=== PATIENT | female | born 1955 | race Caucasian/White ===

== ENCOUNTER 2016-09-12 13:25 | Inpatient (IN) | payer MEDICAID, OTHER ==
[2016-09-12] MEDS ORDERED: SODIUM CHLORIDE 0.9% 500 ML IV ONE ×2 (14:15→15:11)
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
[2016-09-12 14:26] LABS: Appearance,Urine Cloudy (Clear); Bilirubin,Urine Negative (Negative); Glucose,Urine (UA) Negative (Negative); Ketones,Urine 4+ (Negative); Leukocyte Esterase,Urine Negative (Negative); Mucus,Urine Occasional /hpf; Nitrite,Urine Negative (Negative); Particle Count 4566; Protein,Urine 2+ (Negative); RBC,Urine 7 /hpf (0-5); Specific Gravity,Urine 1.021 (1.001-1.035); Squamous Epithelial Cell,Urine 4 /hpf (0-4); UA Billing (MACRO vs. MICRO) MICRO; WBC,Urine 2 /hpf (0-5)
[2016-09-12 14:38] LABS: Basophils % (A) 0 %; CH 31.9; CHCM 33.8; Eosinophils % (A) 0 %; HCT 42.4 % (34.0-46.0); HDW 2.18; HGB 14.4 gm/dL (11.4-16.0); Luc # (Auto) 0.18; Luc % (Auto) 1; Lymphocytes # (A) 1.8 k/uL (1.0-4.8); Lymphocytes % (A) 12 %; MCH 32.3 pg (25.0-35.0); MCHC 34.1 g/dL (31.0-37.0); MCV 94.8 fL (80.0-100.0); Mean Platelet Volume 7.7; Monocytes # (A) 0.5 k/uL (0-1.0); Monocytes % (A) 4 %; Neutrophils # (A) 11.9 k/uL (1.3-7.7); Neutrophils % (A) 82 %; RBC 4.47 m/uL (3.80-5.40); WBC 14.4 k/uL (3.8-10.6); WBC (Perox) 14.47
[2016-09-12 14:51] LABS: Anion Gap 14 mmol/L; Blood Urea Nitrogen 45 mg/dL (7-17); Calcium 9.4 mg/dL (8.4-10.2); Carbon Dioxide 23 mmol/L (22-30); Chloride 106 mmol/L (98-107); Glucose 89 mg/dL (74-99); Non-African American GFR(MDRD) >60 (>60 ml/min/1.73 sqM); Potassium 3.2 mmol/L (3.5-5.1); Sodium 143 mmol/L (137-145)
[2016-09-12] MEDS ORDERED: POTASSIUM CHLORIDE ER 20 MEQ TAB.ER PO STA (15:08)
[2016-09-12] MEDS ORDERED: ZIPRASIDONE 20 MG VIAL IM STA (20:58)
[2016-09-12] MEDS ORDERED: ZIPRASIDONE 20 MG VIAL IM PRN (21:09)
[2016-09-12] MEDS ORDERED: MAGNESIUM HYDROXIDE 2,400 MG/10 ML CUP PO PRN (21:09)
[2016-09-12] MEDS ORDERED: MAG HYDROX/AL HYDROX/SIMETH 30 ML CUP PO PRN (21:09)
[2016-09-13 09:30] LABS: ALT 50 U/L (9-52); AST 34 U/L (14-36); Alkaline Phosphatase 58 U/L (38-126); Anion Gap 9 mmol/L; Blood Urea Nitrogen 29 mg/dL (7-17); Calcium 9.1 mg/dL (8.4-10.2); Carbon Dioxide 24 mmol/L (22-30); Chloride 112 mmol/L (98-107); Glucose 93 mg/dL (74-99); Non-African American GFR(MDRD) >60 (>60 ml/min/1.73 sqM); Potassium 3.8 mmol/L (3.5-5.1); Sodium 145 mmol/L (137-145); Total Bilirubin 0.4 mg/dL (0.2-1.3); Total Protein 6.1 g/dL (6.3-8.2)
[2016-09-13 09:31] LABS: Basophils % (A) 1 %; CH 31.7; CHCM 33.8; Eosinophils % (A) 0 %; HDW 2.19; HGB 13.6 gm/dL (11.4-16.0); Luc # (Auto) 0.15; Luc % (Auto) 2; Lymphocytes # (A) 2.4 k/uL (1.0-4.8); Lymphocytes % (A) 28 %; MCV 94.2 fL (80.0-100.0); Mean Platelet Volume 8.1; Monocytes # (A) 0.4 k/uL (0-1.0); Monocytes % (A) 4 %; Neutrophils # (A) 5.6 k/uL (1.3-7.7); Neutrophils % (A) 65 %; RBC 4.25 m/uL (3.80-5.40); RDW 13.1 % (11.5-15.5); WBC 8.6 k/uL (3.8-10.6); WBC (Perox) 9.15
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
[2016-09-13] MEDS: QUEtiapine 100 MG TAB PO SCH ×2 (13:26→20:37)
[2016-09-13 16:13] VITALS: BMI 18.8
[2016-09-14] MEDS: QUEtiapine 100 MG TAB PO SCH ×2 (09:01→20:20)
--- NOTE | 2016-09-14 10:19 | P.PN ---
Progress Note - Text Interval history: The patient is found in her room. She was verbally arousable from sleep. She refuses to speak to me in an interview room. The patient's sat up and faced away from me briefly. She answered a few questions and then indicated she was done talking. She is not a reliable historian at this time. She refused the Seroquel yesterday. Due to acute psychosis and agitation she did receive a Geodon injection. She was compliant with the Seroquel this morning. Mental status exam: The patient is a disheveled female appearing her stated age. She makes no eye contact she is turned away from me intentionally for most of our interaction this morning. She is dressed in hospital attire. She demonstrates psychomotor slowing with no agitation. She continues to appear confused and provides answers that are irrelevant. She demonstrates no verbal or physical aggressiveness during our interaction. Insight and judgment are impaired. She demonstrates no abnormal involuntary movements. Affect remains flat. Plan: The patient's will continue on the Seroquel as prescribed. Vital signs reviewed. We will continue to monitor her for safety. She has not been participating in the milieu. We will encourage that participation when appropriate.
--- NOTE | 2016-09-14 15:43 | P.CONS ---
History of Present Illness - Reason for Consult Consult date: 09/14/16 Patient admitted to the psych floor medical history and physical - History of Present Illness 61-year-old female is admitted to the hospital for patient was found to be distraught and was noted to have acute psychosis. Patient was restrained was admitted to the psych floor was given a Geodon injection Patient refuses to talk to me today states that she is resting she would likely to come back later Apparently patient has had multiple episodes of agitation No home medications were noted in the patient's chart Patient's labs were reviewed no abnormal labs are noted including a UA which is within normal limits Patient apparently was found in her own feces Review of Systems ROS unobtainable: due to mental status (Noted in) Past Medical History Additional Past Medical History / Comment(s): back pain History of Any Multi-Drug Resistant Organisms: None Reported Past Surgical History: Section, Cholecystectomy Past Psychological History: Anxiety, Depression Smoking Status: Current every day smoker Past Alcohol Use History: None Reported Past Drug Use History: None Reported Medications and Allergies Home Medications Medication Instructions Recorded Confirmed Type No Known Home Medications [No 09/12/16 09/12/16 History Known Home Medications] Allergies Allergy/AdvReac Type Severity Reaction Status Date / Time Penicillins Allergy Unknown Verified 09/12/16 14:15 Physical Exam Vitals: Vital Signs Temp Pulse Resp BP 09/14/16 06:42 98.9 F 85 20 108/62 Patient refuses examination Grossly however is moving all her extremities Results CBC & Chem 7: 09/13/16 09:00 09/13/16 09:00 Assessment and Plan Plan: #1 acute psychosis Plan Patient refused an examination Reviewed the chart. There is no abnormalities noted there is no concern for urinary tract infection No further workup is needed. If there is any issues that do arise or any complaints from the patient please call us back to reevaluate the patient
[2016-09-15] MEDS: QUEtiapine 100 MG TAB PO SCH ×2 (09:16→20:37)
[2016-09-15] MEDS: ACETAMINOPHEN TAB 325 MG TAB PO PRN (09:18)
--- NOTE | 2016-09-15 09:22 | P.PN ---
Progress Note - Text Interval history: The patient is found in her room she is standing looking out her window. The patient remains quite resistant to participating in an interview. Several times she asks me to leave as she wants to be alone. With persistent efforts in questioning her she provides some brief answers. She endorses a mood that is "confused". Documentation was reviewed her by mouth intake and terms of food has not been very good. She is encouraged to consider eating more. She initially states that she would drink ensure but later states she doesn't want it. In reviewing the record it appears she has been compliant with both doses of Seroquel yesterday. Mental status exam: The patient is a female she is dressed in hospital gowns she makes no eye contacts for the most part she staring out of her window and is standing. 2-3 times during our brief interaction she sat on the bed and then started up again. Her breakfast tray is on her bed untouched. Repeatedly she asked to be left alone and is resistant to further questioning. Mood is described as "confused" again there is very little exposure of her face during the interview but does appear flat. She demonstrates no verbal or physical aggressiveness. She is oriented to day month and year area and she appears to be in no acute distress. Plan: The patient will continue on her current medication. We will consider titrating the Seroquel further. She is encouraged to eat more food we will monitor this closely. Vital signs reviewed.
--- NOTE | 2016-09-16 09:07 | P.PN ---
Progress Note - Text Interval history: The patient is found in her room she is standing up looking out of the window. She initially makes eye contact and then breaks that away and exclusively looks out the window. She seated herself on her bed looking out the window throughout the interview. She is more willing to answer questions today. She does provide brief responses to questions asked. There is little spontaneous speech. She continues to be vague and ambiguous with answers but does indicate she needs to be here as she feels "comfortable here". She endorses some arthritic pain and requests Tylenol with codeine but she is willing to use regular Tylenol instead. Mental status exam: The patient is a female she is dressed in hospital gowns. She appears to be struggling still with symptoms of psychosis that she does not specified. Insight and judgment are impaired. She demonstrates no psychomotor agitation no abnormal involuntary movements observed. Again she makes brief eye contact with the initiation of our session. Speech is fluent nonpressured. She does not appear hypomanic or manic. There is no verbal or physical aggressiveness observed. She continues to isolate in her room. Her breakfast tray is visible on the bed once we enter the room she immediately covers it. Plan: The patient will continue on Seroquel we will increase the dose to 100 mg in the morning 200 mg at bedtime. We may need to titrate the dose further. She is very slowly becoming more interactive with are interviews. I believe she continues to experience symptoms of psychosis. She requires continued psychiatric hospitalization as she would likely decompensate if discharged at this time. Vital signs reviewed.
[2016-09-16] MEDS: QUEtiapine 100 MG TAB PO SCH (09:37)
[2016-09-16] MEDS: ACETAMINOPHEN TAB 325 MG TAB PO PRN ×2 (15:38→20:35)
[2016-09-16] MEDS: QUEtiapine 200 MG TAB PO SCH (20:34)
[2016-09-17] MEDS: QUEtiapine 100 MG TAB PO SCH (09:52)
[2016-09-17] MEDS: ACETAMINOPHEN TAB 325 MG TAB PO PRN ×2 (09:52→21:06)
--- NOTE | 2016-09-17 12:14 | P.PN ---
Progress Note - Text Interval History: Patient is being seen in coverage for Dr. Burroughs. Patient was seen in her room where she was found standing looking out the window. She did turn around and make intermittent eye contact during our interview and denied having any auditory or visual hallucinations and denied any other symptoms. Her only statement to me was "I want to be left alone". She responded all other questions with yes and no answers. Patient states that she was sleeping better last evening. She reported no side effects from her medication. Mental Status: Appearance/Attitude: Patient was dressed in a hospital gown and was cooperative during the interview. Behavior: Patient standing in front of the window in her room made intermittent eye contact during the interview, no psychomotor agitation. Speech/Language: Patient's speech was not spontaneous, she spoke in a soft voice with normal rhythm. Thought Process: Patient responded to questions with yes no answers. Thought Content: Patient denied any auditory or visual hallucinations and denied any paranoid ideation and no delusions were elicited. Patient's only statement to me other than answering yes and no to questions was that she "wanted to be left alone". Suicidal/Homicidal Ideation: Patient denied any suicidal or homicidal ideation currently. Sensorium/Cognition: Patient was alert and oriented to person, situation and her memory was not formally tested. Intellectual Functioning: Patient's intellectual functioning appears average Mood/Affect: Patient's affect remains blunted and denied feeling depressed. Insight/Judgement: Patient's insight and judgment are impaired. Assessment: Patient made more eye contact today while I spoke with her in her room but only responded with yes no answers to all questions, denying all symptomatology and only stated that she wanted to be left alone. Patient has been staying in her room and has not been attending groups but did report that her sleep was somewhat better last night. Plan: Patient will continue on Seroquel which was increased yesterday to 100 mg in the morning and 200 mg at bedtime, she was encouraged to attend groups and activities. Patient requires continued hospitalization to stabilize her and improve her level of functioning.
[2016-09-17] MEDS: QUEtiapine 200 MG TAB PO SCH (21:05)
--- NOTE | 2016-09-18 09:28 | P.PN ---
Progress Note - Text Interval history: The patient is found in her room she is seated upright in bed wearing eyeglasses reading a newspaper. Upon entering the room and green her she holds up her hand. She provides no verbal responses today she shakes her head yes or no. She shrugs her shoulders to other answers. She makes no eye contact. With open-ended questions she provides no response and will sit quietly until a different question is answered. This presentation appears consistent with yesterday's presentation in reviewing progress notes. Mental status exam: The patient is alert she is rating her paper wearing eyeglasses she is dressed in hospital gowns. Again she makes no eye contact and provides no verbal responses. Her presentation is somewhat regressed as with our last meeting she provided verbal responses. It is likely she continues to experience acute symptoms of psychosis. Insight and judgment is impaired. No observed abnormal involuntary movements. No physical aggressiveness observed. Affect remains flat. Plan: The patient will continue on Seroquel we will titrate the dose to 100 mg in the morning 300 mg at bedtime to further address her symptoms of psychosis. It appears that her appetite has improved. Her function is still quite limited due to her psychosis and therefore she requires continued psychiatric hospitalization. Vital signs reviewed.
[2016-09-18] MEDS: QUEtiapine 100 MG TAB PO SCH ×2 (09:34→21:42)
[2016-09-18] MEDS: ACETAMINOPHEN TAB 325 MG TAB PO PRN ×2 (09:37→21:41)
[2016-09-19] MEDS: ACETAMINOPHEN TAB 325 MG TAB PO PRN (10:17)
[2016-09-19] MEDS: QUEtiapine 100 MG TAB PO SCH ×2 (10:18→20:02)
--- NOTE | 2016-09-19 10:59 | P.PN ---
Progress Note - Text Interval history: The patient is found in her room she is ambulating today she makes eye contact and provides verbal responses to my questions. 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 She endorses a continued feeling of confusion. She offers no explanation for this episode of psychosis. She endorses no recent loss or relationship difficulty. She is aware of the Seroquel being prescribed and it' s current dose. She is comfortable with continuing the medication. It is recorded that she slept 5 hours last evening. She has been doing better with meal consumption and had indicated she looks forward to eating now. She does ask me if we will continue the Ensure. Mental status exam: The patient's is alert she is dressed in hospital gown she is wearing eyeglasses. Grooming seems improved. She does engage in conversation in that she provides verbal responses today with me she did not initiate conversation. She endorses a "confused" mood. Affect appears blunted today. She appears to experience continued symptoms of psychosis. She verbalizes no hallucinations. She endorses a feeling of safety here in the hospital. No observed abnormal movements. No verbal or physical aggressiveness. Insight and judgment limited. Plan: The patient will continue on the Seroquel as written we will consider titrating it further if needed. It does appear that she is slowly stabilizing. She is encouraged to reduce her isolation in her room. She is adamant that she will not attend groups. She is encouraged to ambulate in the hallways. Vital signs reviewed. We will continue to monitor for safety.
[2016-09-20] MEDS: QUEtiapine 100 MG TAB PO SCH ×2 (09:35→21:24)
[2016-09-20] MEDS: NICOTINE 21MG/24HR PATCH TRANSDERM SCH (17:26)
[2016-09-20] MEDS ORDERED: traZODone HCL 50 MG TAB PO PRN (19:27)
[2016-09-20] MEDS ORDERED: hydrOXYzine PAMOATE 25 MG CAP PO PRN (19:27)
--- NOTE | 2016-09-20 19:27 | P.PN ---
Progress Note - Text Date of service: 09/20/2016 Chief complaint: "I feel better today " Subjective: The patient has been seen today as follow-up, chart reviewed, case discussed with the treatment team. The patient endorsed still has poor sleep and woke up frequently last night. She reports has racing thoughts, feeling irritable and increasingly anxious. She reports feels less depressed today and denies any thoughts to hurt self or others. She endorsed her anxiety is the most bothering at current time with nonstop racing thoughts and always feeling tense and irritable. Also reports her anxiety would cause physical symptoms including tightness of chest and sometimes racing hear. The patient denies any manic symptoms. The patient denies any auditory or visual hallucinations. Also the patient denies any paranoid ideation. Generally the patient reports feeling progress "today is the first time to feel like myself" Review of other systems: Patient denies any physical symptoms besides what has been mentioned above. No breathing problems, no chest pain reported today. Objective: Vitals has been reviewed. Mental status examination; Appearance: The patient appears older than his stated age, partially disheveled , dressed in hospital gown, no specific features. Gait/posture: Normal gait, Normal arm swinging: No abnormal movements. Attitude and behavior: engaged, not fully cooperative, intermittent eye contact. Motor activity: Increased psychomotor activity Speech: Normal rate and rhythm but very soft. Mood: Anxious Affect: Constricted Thought form: goal-directed, linear, coherent. Thought content: Non-delusional, denies suicidal thoughts, denies homicidal thoughts, denies intentions or plans. Perception: Denies any auditory or visual hallucinations Attention: No impairment. Orientation: Patient patient was fully oriented to time place person and situation. Insight: Patient has limited insight about his psychiatric disorder. Judgment: Patient has limited judgment about his psychiatric treatment. Assessment: Psychosis unspecified Unspecified anxiety disorder Plan: Continue with inpatient psychiatric hospitalization for monitoring and continue treatment. Continue group therapy and other unit activities. Continue psychiatric medications: Continue Seroquel for psychotic symptoms and as mood stabilizer Discussed with pt to start other anti-anxiety medication as SSRI or Neurontin but she refused Pt agreed to try Vistaril PRN for anxiety and Trazodone PRN for insomnia We'll continue monitoring and follow-up
[2016-09-21 06:52] VITALS: RESP 16
[2016-09-21] MEDS: QUEtiapine 100 MG TAB PO SCH ×2 (08:06→20:54)
[2016-09-21] MEDS: NICOTINE 21MG/24HR PATCH TRANSDERM SCH (08:06)
--- NOTE | 2016-09-21 15:24 | P.PN ---
Progress Note - Text Date of service: 09/21/2016 Chief complaint: "I'm still feeling anxious and I want have my Ativan " Subjective: The patient has been seen today as follow-up, chart reviewed, case discussed with the treatment team. Patient slept about 5-6 hours last night. Patient has been not going to groups and other unit activities which has been explained by the patient due to high anxiety. Patient reports no appetite problems. The patient continued to report feeling extremely anxious, apprehensive with nonstop racing thoughts and has bouts of severe anxiety with racing heart and feeling extremely tense. Discussed with the patient to take Vistaril and she refused to give it a chance. She reported that she recalled she had tried before and caused severe reaction but she couldn't remember what happened. Patient agreed to try trazodone to help with the sleep. She reported that she wanted to get back on Ativan and he refused to discuss any other option for medication adjustment to help with anxiety. Patient denies feeling severely depressed and he denies feeling hopeless or suicidal. The patient denies any manic symptoms. The patient denies any auditory or visual hallucinations. Also the patient denies any paranoid ideation. The patient is compliant with her medications and denies any adverse reactions. Review of other systems: Patient denies any physical symptoms besides what has been mentioned above. No breathing problems, no chest pain reported today. Objective: Vitals has been reviewed. Mental status examination; Appearance: The patient appears older than stated age, partially disheveled, dressed in hospital gown, no specific features. Gait/posture: Normal gait, Normal arm swinging: No abnormal movements. Attitude and behavior: engaged, not fully cooperative, intermittent eye contact. Motor activity: Increased psychomotor activity Speech: Normal rate and rhythm but very soft. Mood: Anxious Affect: Constricted Thought form: goal-directed, linear, coherent. Thought content: Non-delusional, denies suicidal thoughts, denies homicidal thoughts, denies intentions or plans. Perception: Denies any auditory or visual hallucinations Attention: No impairment. Orientation: Patient patient was fully oriented to time place person and situation. Insight: Patient has limited insight about her psychiatric disorder. Judgment: Patient has limited judgment about her psychiatric treatment. Assessment: Psychosis unspecified Unspecified anxiety disorder Plan: Continue with inpatient psychiatric hospitalization for monitoring and continue treatment. Continue group therapy and other unit activities. Continue psychiatric medications: Continue Seroquel for psychotic symptoms and as mood stabilizer Discussed with pt to start other anti-anxiety medication as SSRI or Neurontin but she continued to refuse any change of her medication or adjustment besides adding Ativan. Will discontinue Vistaril Vistaril PRN for anxiety We will continue Trazodone PRN for insomnia We'll continue monitoring and follow-up
[2016-09-21] MEDS: ACETAMINOPHEN TAB 325 MG TAB PO PRN (22:00)
[2016-09-22 07:04] VITALS: PULSE 66
[2016-09-22] MEDS: ACETAMINOPHEN TAB 325 MG TAB PO PRN ×3 (09:04→20:46)
[2016-09-22] MEDS: QUEtiapine 100 MG TAB PO SCH ×2 (09:04→20:30)
--- NOTE | 2016-09-22 09:29 | P.PN ---
Progress Note - Text Interval history: The patient is found in the hallway she follows this to an interview room. The patient indicates her mood is improving. She reports some difficulty sleeping but is reported as having slept 6 hours she reports her appetite has returned she looks forward to meals. In reviewing documentation she has been doing well with eating. She has been avoiding groups for the most part she did attempt one but she felt offended by language that was used during the session. She has concern about the Seroquel interfering with her liver function. We reviewed her most recent liver enzymes which were normal and the fact that she needs to continue the Seroquel. She was reassured that Seroquel has no addictive potential which she assumed it did. She states that she only has one child in the area a son she feels he may be available via phone for a support meeting. Mental status exam: The patient is dressed in hospital gowns hygiene grooming improved she is preparing to shower this morning. She is wearing eyeglasses. Speech is fluent spontaneous nonpressured. She provides relevant answers to questions asked. She feels her mood is improving. Symptoms of psychosis are resolving. There is no report of suicidal ideation. She demonstrates no verbal or physical aggressiveness. No abnormal involuntary movements observed. Affect is demonstrating inappropriate increase in range. Affect is congruent to mood. Insight and judgment improving. Plan: The patient will continue on her current medications I anticipate discharging her in the next 1-2 days. Social work will be asked to arrange a support meeting and to confirm she has housing to return to. Vital signs reviewed.
[2016-09-22] MEDS: NICOTINE 21MG/24HR PATCH TRANSDERM SCH (09:48)
[2016-09-23 05:44] VITALS: BP 99/56; TEMP 97.5
[2016-09-23] MEDS: NICOTINE 21MG/24HR PATCH TRANSDERM SCH (08:10)
[2016-09-23] MEDS: QUEtiapine 100 MG TAB PO SCH (08:11)
[2016-09-23] MEDS: ACETAMINOPHEN TAB 325 MG TAB PO PRN ×2 (08:11→12:51)
--- NOTE | 2016-09-23 10:57 | P.DS ---
Providers Date of admission: 09/12/16 21:05 Expected date of discharge: 09/23/16 Attending physician: Edmar Burroughs Consults: 09/12/16 21:09 Consult Physician Routine Consulting Provider: Yumi Prabhakar Consult Reason/Comments: H&P and medical follow up, UTI Do you want consulting provider notified?: Yes Primary care physician: Stated None - Discharge Diagnosis(es) (1) Psychosis Current Visit: Yes Status: Acute Priority: High Hospital Course: Brief summary of admission note: The patient is a 61-year-old female who was admitted to the mental health unit through the emergency room for acute the agitated behavior with psychosis. The patient was admitted on a petition stating she was agitated confused and disorganized. She was agitated in the emergency room and attempted to throw feces at an emergency Center nurse. She was physically aggressive. For full details please refer to the psychiatric evaluation dictated 09/13/2016. Summary of hospital course: The patient was admitted to the mental health unit in voluntarily. I did complete a second clinical certificate. During her deferral conference she did sign the deferral agreement. I had attempted to meet with the patient initially however she was not cooperative with the interview. I was able to review old records from her 2014 visit. We decided to restart her on Seroquel and this was titrated during the course of her stay ultimately to 100 mg in the morning and 300 mg at bedtime. For the first several days the patient was either uncooperative are partially cooperative with the interview. During the course of the hospitalization however this improved. For the last several days she has been doing markedly better and has engaged in the interview each day. She was seen by the hospitalist for routine history and physical exam. She is reporting no side effects with the Seroquel. During the course of her hospitalization she was placed on trazodone for sleep. She will likely be staying with her son social work will confirm placement options. Initially her appetite was quite poor and she was not eating well this was closely observed. We did provide insurer with meals. For the last several days she has been doing well with eating. Mental status exam: The patient is a female appearing her stated age. She is dressed in hospital gown she is wearing eyeglasses. Hygiene grooming is much improved. Speech is fluent spontaneous nonpressured. She reports her mood is "better". She denies having any suicidal or homicidal ideation intent or plan. She is endorsing no auditory or visual hallucinations she is endorsing no specific delusions at this time. She demonstrates no verbal or physical aggressiveness. Insight and judgment have improved. There are no observed abnormal involuntary movements. She is oriented to person place and date. Affect is appropriately expresses and is congruent to her reported mood. Impressions 1. Psychosis unspecified, rule out schizophrenia 2. History of chronic pain, osteoarthritis 3. Need for housing change Plan: The patient will be discharged mental health unit today. She is on an existing deferral agreement. She will be continued on Seroquel 100 mg in the morning 300 mg at bedtime. She does prefer to continue using trazodone 50 mg at bedtime for sleep. Social work will arrange outpatient mental health follow- up. She has improved significantly during the course of this hospitalization she is able to participate in her own activities of daily living she is endorsing no symptoms of psychosis. There is no imminent safety risk she is appropriate for transition to outpatient care. Patient Condition at Discharge: Stable Plan - Discharge Summary New Discharge Prescriptions: New Nicotine 21Mg/24Hr Patch [Habitrol] 1 patch TRANSDERM DAILY #12 patch QUEtiapine [SEROquel] 100 mg PO DAILY #30 tab QUEtiapine FUMARATE [SEROquel] 300 mg PO HS #30 tab traZODone HCL [Desyrel] 50 mg PO HS PRN #30 tab PRN Reason: Insomnia Discharge Medication List Nicotine 21Mg/24Hr Patch [Habitrol] 1 patch TRANSDERM DAILY #12 patch 09/23/16 [ Rx] QUEtiapine FUMARATE [SEROquel] 300 mg PO HS #30 tab 09/23/16 [Rx] QUEtiapine [SEROquel] 100 mg PO DAILY #30 tab 09/23/16 [Rx] traZODone HCL [Desyrel] 50 mg PO HS PRN #30 tab 09/23/16 [Rx] Follow up Appointment(s)/Referral(s): None,Stated [Primary Care Provider] - 1-2 days
== END 2016-09-23 16:47 | disposition home or self-care (01) | DRG 885 ==
LOC: EC 13:25 → 3MHU 21:05
PROVIDERS: ADMIT Psychiatry & Neurology Psychiatry; ATTEND Psychiatry & Neurology Psychiatry
DX: F23 Brief psychotic disorder (principal); F41.9 Anxiety disorder, unspecified; F17.200 Nicotine dependence, unspecified, uncomplicated; G89.29 Other chronic pain; M19.91 Primary osteoarthritis, unspecified site; H40.9 Unspecified glaucoma; G47.9 Sleep disorder, unspecified; M54.9 Dorsalgia, unspecified; Z90.49 Acquired absence of other specified parts of digestive tract; Z87.828 Personal history of other (healed) physical injury and trauma
CPT/HCPCS: 36415; 80048; 80053; 80306; 81001; 82075; 84443; 85025; 96360; 96361; 96372; 99285

== ENCOUNTER 2016-11-10 13:42 | Emergency (ER) | payer MEDICAID, OTHER ==
[2016-11-10 14:03] VITALS: RESP 18
--- NOTE | 2016-11-10 14:59 | ED ---
Psych HPI - General Chief Complaint: Psychiatric Symptoms Stated Complaint: Mental Health Time Seen by Provider: 11/10/16 14:05 Source: patient, police Mode of arrival: ambulatory - History of Present Illness Initial Comments: This 61-year-old white female presents for psychiatric evaluation. She apparently does have a history of bipolar disorder. She had a court ordered to follow-up with a counselor. She apparently missed her appointment with the scheduled counselor and the police brought her in to the emergency department for further evaluation. She relates that she followed up with her own counselor. She previously was on a medication that she states made her head feels fuzzy. Her primary doctor put her on Elavil and Ativan. She states that she has been on these medications for years and this is what normally seems to work well for her. She's been feeling much improved since being on these medications. She denies any current depression, suicidal or homicidal ideations , or hallucinations. She has some chronic pain issues but denies any other medical complaints. She states that she feels fine at this point in time. No other complaints or modifying factors. - Related Data Home Medications Medication Instructions Recorded Confirmed Amitriptyline HCl [Elavil] 25 mg PO TID 11/10/16 11/10/16 Cephalexin [Keflex] 250 mg PO TID 11/10/16 11/10/16 LORazepam [Ativan] 1 mg PO TID 11/10/16 11/10/16 QUEtiapine FUMARATE [SEROquel] 150 mg PO HS 11/10/16 11/10/16 Allergies Allergy/AdvReac Type Severity Reaction Status Date / Time Penicillins Allergy Unknown Verified 11/10/16 14:52 latex AdvReac Rash/Hives Verified 11/10/16 14:52 Review of Systems ROS Statement: Those systems with pertinent positive or pertinent negative responses have been documented in the HPI. ROS Other: All systems not noted in ROS Statement are negative. Past Medical History Additional Past Medical History / Comment(s): back pain History of Any Multi-Drug Resistant Organisms: None Reported Past Surgical History: Section, Cholecystectomy Past Psychological History: Anxiety, Depression Smoking Status: Current every day smoker Past Alcohol Use History: None Reported Past Drug Use History: None Reported General Exam - General Exam Comments Initial Comments: GENERAL: The patient is well nourished and well hydrated. VITAL SIGNS: Heart rate, blood pressure, respiratory rate reviewed as recorded in nurse's notes. EYES: Pupils are round and reactive. Extraocular movements are intact. No conjunctival / lid redness or swelling. ENT: No external evidence of injury, swelling, or ecchymosis. Airway is patent. Throat is clear. NECK: Nontender. No swelling or evidence of injury. No subcutaneous emphysema. Trachea is midline. No thyroid mass. HEART: Regular rate and rhythm. Good peripheral pulses. LUNGS/CHEST: Breath sounds clear and equal bilaterally. No rales, rhonchi, or wheezes. No ecchymosis, subcutaneous emphysema, or tenderness. ABDOMEN: Abdomen soft without tenderness. No palpable masses or organomegaly. No peritoneal signs. No abdominal wall swelling or ecchymosis. EXTREMITIES: No extremity tenderness. Normal muscle tone and function. No thoracolumbar tenderness. NEUROLOGIC: Sensation is grossly intact. Cranial nerve exam reveals face is symmetrical, tongue is midline, speech is clear. SKIN: No abrasions or ecchymosis is noted. No induration or masses noted. PSYCHIATRIC: Alert and oriented. Appropriate behavior and judgment. Limitations: no limitations Course Vital Signs 11/10/16 13:50 Temperature 97.9 F Pulse Rate 87 Respiratory 18 Rate Blood Pressure 123/66 O2 Sat by Pulse 99 Oximetry Medical Decision Making - Medical Decision Making The patient was seen and examined. A consult was placed for psychiatry. All diagnostics were reviewed. It is felt as though she is medically cleared for further psychiatric evaluation. The case is discussed with psychiatry at they recommend discharge. It appears that she has been following up as recommended but had not informed to quarts as she followed up with somebody else. She appears quite well clinically at this time to myself and the psychiatry nurse. She was counseled regarding her condition and leaves in no distress. - Lab Data Lab Results 11/10/16 Range/Units 13:55 Urine Opiates Screen Not Detected (NotDetected) Ur Oxycodone Screen Not Detected (NotDetected) Urine Methadone Screen Not Detected (NotDetected) Ur Propoxyphene Screen Not Detected (NotDetected) Ur Barbiturates Screen Not Detected (NotDetected) U Tricyclic Antidepress Detected H (NotDetected) Ur Phencyclidine Scrn Not Detected (NotDetected) Ur Amphetamines Screen Not Detected (NotDetected) U Methamphetamines Scrn Not Detected (NotDetected) U Benzodiazepines Scrn Detected H (NotDetected) Urine Cocaine Screen Not Detected (NotDetected) U Marijuana (THC) Screen Not Detected (NotDetected) Disposition Clinical Impression: Bipolar disorder Disposition: HOME SELF-CARE Condition: Good Instructions: Bipolar Disorder (ED) Referrals: Ezequiel Oshea III, MD [Primary Care Provider] - 1-2 days Time of Disposition: 18:37
[2016-11-10 18:56] VITALS: BP 118/65; PULSE 78; TEMP 97.6
== END 2016-11-10 18:56 | disposition home or self-care (01) ==
LOC: EC 13:42
DX: F31.9 Bipolar disorder, unspecified (principal); F41.9 Anxiety disorder, unspecified; F17.200 Nicotine dependence, unspecified, uncomplicated; Z79.899 Other long term (current) drug therapy; Z88.0 Allergy status to penicillin; Z91.040 Latex allergy status
CPT/HCPCS: 80306; 82075; 99284

== ENCOUNTER 2019-03-18 14:26 | Observation (INO) | payer OTHER ==
[2019-03-18 15:39] LABS: Basophils # (A) 0.2 k/uL (0-0.2); Basophils % (A) 2 %; Eosinophils # (A) 0.1 k/uL (0-0.7); Eosinophils % (A) 1 %; HCT 42.3 % (34.0-46.0); HGB 13.8 gm/dL (11.4-16.0); Lymphocytes # (A) 3.7 k/uL (1.0-4.8); Lymphocytes % (A) 31 %; MCH 30.8 pg (25.0-35.0); MCHC 32.7 g/dL (31.0-37.0); MCV 94.2 fL (80.0-100.0); Mean Platelet Volume 7.9; Monocytes # (A) 0.5 k/uL (0-1.0); Monocytes % (A) 4 %; Neutrophils # (A) 7.1 k/uL (1.3-7.7); Neutrophils % (A) 60 %; Platelet Count 283 k/uL (150-450); RBC 4.49 m/uL (3.80-5.40); RDW 12.8 % (11.5-15.5); WBC 11.7 k/uL (3.8-10.6)
--- NOTE | 2019-03-18 15:41 | XR ---
EXAMINATION TYPE: XR chest 2V DATE OF EXAM: 03/18/2019 COMPARISON: 10/08/2009 INDICATION: Left-sided chest pain and difficulty breathing x3 days TECHNIQUE: Frontal and lateral views of the chest are obtained. FINDINGS: The heart size is normal. The pulmonary vasculature is normal. The lungs are clear. There is hyperinflation flattening the diaphragms with an increased retrosterna l airspace compatible COPD. IMPRESSION: 1. COPD. 2. No acute pulmonary process.
[2019-03-18 15:48] LABS: ALT 17 U/L (4-34); AST 31 U/L (14-36); African American GFR (CKD) >90 (>60 ml/min/1.73 sqM); Albumin 4.6 g/dL (3.5-5.0); Alkaline Phosphatase 56 U/L (38-126); Anion Gap 7 mmol/L; Blood Urea Nitrogen 10 mg/dL (7-17); Calcium 9.3 mg/dL (8.4-10.2); Carbon Dioxide 23 mmol/L (22-30); Chloride 108 mmol/L (98-107); Glucose 97 mg/dL (74-99); Magnesium 1.9 mg/dL (1.6-2.3); Non-African American GFR(CKD) >90 (>60 ml/min/1.73 sqM); Sodium 138 mmol/L (137-145); Total Bilirubin 0.4 mg/dL (0.2-1.3); Total Protein 7.5 g/dL (6.3-8.2)
[2019-03-18 15:49] LABS: INR 0.9 (<1.2); Partial Thromboplastin Time 23.4 sec (22.0-30.0); Prothrombin Time 9.4 sec (9.0-12.0)
--- NOTE | 2019-03-18 16:28 | ED ---
Chest Pain HPI - General Chief Complaint: Chest Pain Stated Complaint: Chest pain Time Seen by Provider: 03/18/19 15:13 Source: patient Mode of arrival: ambulatory Limitations: no limitations - History of Present Illness Initial Comments: Patient presents with chest pain. Pain is substernal. It radiates the left side. She has no diaphoresis. She has no nausea. She has no weakness. She has no lightheadedness or dizziness. She has taken no medicines for this. She wasn't doing anything when the pain began. She has never had a cardiac workup in the past. - Related Data Home Medications Medication Instructions Recorded Confirmed Amitriptyline HCl [Elavil] 25 mg PO TID 11/10/16 11/10/16 Cephalexin [Keflex] 250 mg PO TID 11/10/16 11/10/16 LORazepam [Ativan] 1 mg PO TID 11/10/16 11/10/16 QUEtiapine FUMARATE [SEROquel] 150 mg PO HS 11/10/16 11/10/16 Allergies Allergy/AdvReac Type Severity Reaction Status Date / Time Penicillins Allergy Unknown Verified 03/18/19 14:34 latex AdvReac Rash/Hives Verified 03/18/19 14:34 Review of Systems ROS Statement: Those systems with pertinent positive or pertinent negative responses have been documented in the HPI. ROS Other: All systems not noted in ROS Statement are negative. EKG Findings - EKG Comments: EKG Findings:: Twelve-lead EKG shows ventricular rate 94 bpm, normal NM interval and QRS complexes, no ST elevation or depression, interpreted by me as normal sinus rhythm. Past Medical History Additional Past Medical History / Comment(s): back pain History of Any Multi-Drug Resistant Organisms: None Reported Past Surgical History: Section, Cholecystectomy Past Psychological History: Anxiety, Depression Smoking Status: Current every day smoker Past Alcohol Use History: None Reported Past Drug Use History: Marijuana General Exam Limitations: no limitations General appearance: alert, in no apparent distress Head exam: Present: atraumatic, normocephalic, normal inspection Eye exam: Present: normal appearance, PERRL, EOMI. Absent: scleral icterus, conjunctival injection, periorbital swelling ENT exam: Present: normal exam, mucous membranes moist Neck exam: Present: normal inspection. Absent: tenderness, meningismus, lymphadenopathy Respiratory exam: Present: normal lung sounds bilaterally. Absent: respiratory distress, wheezes, rales, rhonchi, stridor Cardiovascular Exam: Present: regular rate, normal rhythm, normal heart sounds. Absent: systolic murmur, diastolic murmur, rubs, gallop, clicks GI/Abdominal exam: Present: soft, normal bowel sounds. Absent: distended, tenderness, guarding, rebound, rigid Extremities exam: Present: normal inspection, full ROM, normal capillary refill. Absent: tenderness, pedal edema, joint swelling, calf tenderness Back exam: Present: normal inspection Neurological exam: Present: alert, oriented X3, CN II-XII intact Psychiatric exam: Present: normal affect, normal mood Skin exam: Present: warm, dry, intact, normal color. Absent: rash Course Vital Signs 03/18/19 14:35 Temperature 98.8 F Pulse Rate 99 Respiratory 18 Rate Blood Pressure 123/80 O2 Sat by Pulse 96 Oximetry Chest Pain MDM - Core Measures AMI Core Measures Followed: Yes - MDM Patient presents with chest pain. I'm concerned for acute coronary syndrome. Initial troponin is negative. Patient will be admitted to the hospital. I will consult cardiology. Disposition Clinical Impression: Chest pain Disposition: ADMITTED IP TO THIS HOSP Condition: Fair Is patient prescribed a controlled substance at d/c from ED?: No Referrals: Ezequiel Oshea III, MD [Primary Care Provider] - 1-2 days
[2019-03-18] MEDS ORDERED: MAG HYDROX/AL HYDROX/SIMETH 30 ML CUP PO PRN (16:42)
[2019-03-18] MEDS ORDERED: ONDANSETRON 4 MG/2 ML VIAL IVP PRN (16:42)
[2019-03-18] MEDS ORDERED: NALOXONE 0.4 MG/ML 1 ML VIAL IV PRN (16:42)
[2019-03-18] MEDS ORDERED: MORPHINE SULFATE 4 MG/ML SYRINGE IV PRN (16:42)
[2019-03-18] MEDS: NICOTINE 21MG/24HR PATCH TRANSDERM SCH (17:56)
[2019-03-18] MEDS: QUEtiapine 50 MG TAB PO SCH ×3 (20:08→23:01)
[2019-03-18] MEDS: AMITRIPTYLINE HCL 25 MG TAB PO SCH (20:12)
[2019-03-18] MEDS: IPRATROPIUM-ALBUTEROL 3 ML NEB INHALATION SCH ×2 (20:49→23:38)
--- NOTE | 2019-03-18 22:25 | P.HPIM ---
History of Present Illness H&P Date: 03/18/19 Chief Complaint: Chest pain Patient is a 64-year-old female with a known history of chronic neck pain and previous history of DVT several years ago while she was . Ongoing nicotine addiction with currently everyday smoker, history of marijuana use came to ER with complaints of chest pain. Pain is mainly onto the left breast and radiating up to the shoulder. Patient has been having worsening pain for the past. He is not relieving at home. Pain gets worse with deep breathing and catching breath and mainly pruritic. No recent history of flulike illnesses or pneumonia. Patient says that she went to her sister's place about a week ago and exposed to sick contacts with flu. Denied any cough is from production. No sore throat or runny nose. Patient came to ER for further evaluation. Denied any fever or chills. EKG showed sinus rhythm. Chest x-ray showed COPD and no acute process. Troponin 2 negative D-dimer not elevated BNP not elevated Review of Systems Constitutional: Patient denies any fever or chills . No generalized weakness or weight loss. Abdomen: Patient denied nausea vomiting and diarrhea and abdominal pain. Cardiovascular: Patient denies any chest pain or short of breath no palpitat ions. Left-sided chest pain below the breast. Respiratory: patient denied any cough is from production. No shortness of breath Neurologic: Patient denied any numbness or tingling headache. Musculoskeletal: Patient denies any complaints of joint swelling or deformity. Skin: Negative Psychiatric: Negative Endocrine: No heat or cold intolerance. No recent weight gain. Genitourinary: No dysuria or hematuria. All other 14 point ROS negative except the above Past Medical History Past Medical History: Deep Vein Thrombosis (DVT) Additional Past Medical History / Comment(s): blood clot in stomach, chronic neck pain, chronic joint pain, glaucoma, shoulder fx in three places, tore ligaments in bilateral knees, broke bilateral ankles and tore ligaments in both knees, vertigo, possible early onset dementia; bulging disc. History of Any Multi-Drug Resistant Organisms: None Reported Past Surgical History: Section, Cholecystectomy Additional Past Surgical History / Comment(s): c-sectionx4 Past Anesthesia/Blood Transfusion Reactions: No Reported Reaction Additional Past Anesthesia/Blood Transfusion Reaction / Comment(s): pt recieved 4 units of blood 45 years ago and was exposed to hepatitis A, B and C Past Psychological History: Anxiety, Depression Smoking Status: Current every day smoker Past Alcohol Use History: None Reported Past Drug Use History: Marijuana Additional Drug Use History / Comment(s): Pt denies use of alcohol, marijuana, and other illicit substances even thougth the record indicates otherwise. When asked about the discrepancy, pt states "they don't know what they are talking about ". - Past Family History Father Additional Family Medical History / Comment(s): no history Brother(s) Family Medical History: Myocardial Infarction ([place]) Mother Additional Family Medical History / Comment(s): demensia Medications and Allergies Home Medications Medication Instructions Recorded Confirmed Type Amitriptyline HCl [Elavil] 25 mg PO TID 11/10/16 03/18/19 History LORazepam [Ativan] 1 mg PO BID PRN 11/10/16 03/18/19 History Acetaminophen with Codeine 1 tab PO Q6H PRN 03/18/19 03/18/19 History [Tylenol with Codeine #4 Tablet] Cephalexin [Keflex] 500 mg PO TID 03/18/19 03/18/19 History Ferrous Sulfate [Feosol] 325 mg PO BID 03/18/19 03/18/19 History Allergies Allergy/AdvReac Type Severity Reaction Status Date / Time Penicillins Allergy Unknown Verified 03/18/19 18:21 latex AdvReac Rash/Hives Verified 03/18/19 18:21 Physical Exam Vitals: Vital Signs Temp Pulse Pulse Resp BP BP Pulse Ox 03/18/19 18:05 98.5 F 89 18 139/82 99 03/18/19 16:40 99.1 F 89 18 150/84 98 03/18/19 14:35 98.8 F 99 18 123/80 96 Intake and Output 03/18/19 03/18/19 03/18/19 06:59 14:59 22:59 Other: # Voids 1 Weight 58.967 kg 58.967 kg PHYSICAL EXAMINATION: Patient is lying in the bed comfortably, no acute distress, awake alert and oriented.. HEENT: Normocephalic. Neck is supple. Pupils reactive. Nostrils clear. Oral cavity is moist. Ears reveal no drainage. Neck reveals no JVD, carotid bruits, or thyromegaly. CHEST EXAMINATION: Trachea is central. Symmetrical expansion. Scattered rhonchi. Lung parisi clear to auscultation and percussion. CARDIAC: Normal S1, S2 with no gallops. No murmurs ABDOMEN: Soft. Bowel sounds normal. No organomegaly. No abdominal bruits. Extremities: reveal no edema. No clubbing or cyanosis Neurologically awake, alert, oriented x3 with well-coordinated movements. No focal deficits noted Skin: No rash or skin lesions. Psychiatric: Coperative. Nonsuicidal Musculoskeletal: No joint swelling or deformity. Normal range of motion. Results CBC & Chem 7: 03/18/19 15:27 03/18/19 15:27 Labs: Abnormal Lab Results - Last 24 Hours (Table) 03/18/19 03/18/19 Range/Units 15:27 15:27 WBC 11.7 H (3.8-10.6) k/uL Chloride 108 H (98-107) mmol/L Thrombosis Risk Factor Assmnt - DVT/VTE Prophylaxis DVT/VTE Prophylaxis: Pharmacologic Prophylaxis ordered - Choose All That Apply Any of the Below Risk Factors Present?: Yes Other Risk Factors: Yes Each Risk Factor Represents 2 Points: Age 61-74 years Each Risk Factor Represents 3 Points: History of DVT/PE Thrombosis Risk Factor Assessment Total Risk Factor Score: 5 Thrombosis Risk Factor Assessment Level: High Risk Assessment and Plan Assessment: Atypical chest pain. Mainly pleuritic in nature. Rule out acute coronary syndrome. Ongoing nicotine addiction Possible underlying COPD History of blood clots/DVT when she was several years ago Anxiety/depression History of marijuana use DVT prophylaxis Plan: Patient will be continued on telemetry monitoring. Serial EKG and troponins. D-dimer not elevated. BNP not elevated. Patient will be started on DuoNeb's and smoking patch was applied. Pain management with morphine. Smoking cessation has been counseled extensively. Cardiology was consulted. Patient will need follow-up with pulmonary clinic for function tests. Time with Patient: Greater than 30
[2019-03-18] MEDS: HEPARIN SODIUM,PORCINE 5,000 UNIT/ML 1 ML VIAL SQ SCH (23:02)
[2019-03-19 03:36] LABS: Basophils % (A) 0 %; Eosinophils % (A) 0 %; HCT 38.2 % (34.0-46.0); HGB 12.7 gm/dL (11.4-16.0); Lymphocytes # (A) 3.9 k/uL (1.0-4.8); Lymphocytes % (A) 39 %; MCH 31.7 pg (25.0-35.0); MCHC 33.3 g/dL (31.0-37.0); MCV 95.2 fL (80.0-100.0); Mean Platelet Volume 8.1; Monocytes # (A) 0.6 k/uL (0-1.0); Monocytes % (A) 6 %; Neutrophils # (A) 5.2 k/uL (1.3-7.7); Neutrophils % (A) 52 %; Platelet Count 255 k/uL (150-450); RBC 4.02 m/uL (3.80-5.40); RDW 12.8 % (11.5-15.5); WBC 9.9 k/uL (3.8-10.6)
[2019-03-19 04:18] VITALS: RESP 18
[2019-03-19] MEDS: IPRATROPIUM-ALBUTEROL 3 ML NEB INHALATION SCH ×3 (05:33→12:25)
--- NOTE | 2019-03-19 10:57 | P.CRDCN ---
History of Present Illness Consult date: 03/19/19 Consult reason: chest pain History of present illness: The patient is a 64-year-old female with past medical history of DVT and chronic back discomfort, who presents to the hospital after being directed by her primary care doctor's office. She states she had been experiencing a knot in her chest over the past 3 days. She states this started under her left pectoral muscle and progressed underneath her bilateral breasts. She states to constant ache it is not worsened with exertion. She does have some chronic shortness of breath, however attributes it to her smoking history. EKG shows sinus mechanism without ST or T-wave changes. Cardiac enzymes were negative. D-dimer was normal. BNP 128. On exam this morning she is currently resting comfortably in bed. She states she does continue to have some ache under her breasts, however it is worse with palpation. She states she got up and shower this morning without chest pain or shortness of breath. PAST MEDICAL HISTORY: DVT, chronic back pain REVIEW OF SYSTEMS: No fever or chills. No cough or expectoration. No diaphoresis. Patient denies headache, dizziness, blurred vision, double vision. Patient denies any stomach discomfort. No nausea, vomiting. No hematochezia. No hematemesis. Denies any black stools or blood in his stools. Denies dysuria or hematuria. No muscle weakness or numbness. Positive discomfort under bilateral breasts. PHYSICAL EXAMINATION: This is a 64-year-old female in no apparent distress at the time of my examination. HEENT: Head is atraumatic, normocephalic. Pupils are equal, round. Sclerae anicteric. Conjunctivae are clear. Mucous membranes of the mouth are moist. Neck is supple. There is no jugular venous distention. No carotid bruit is heard. CHEST EXAMINATION: Lungs are clear to auscultation. No chest wall tenderness is noted on palpation or with deep breathing. HEART EXAMINATION: Heart regular rate and rhythm. S1, S2 heard. No murmurs, gallops or rub. ABDOMEN: Soft, nontender. Bowel sounds are heard. No organomegaly noted. EXTREMITIES: 2+ peripheral pulses with no evidence of peripheral edema and no calf tenderness noted. NEUROLOGIC EXAMINATION: Patient is awake, alert and oriented x3. LABORATORY DATA: WBC 9.9, hemoglobin 12.7, hematocrit 30.2, platelet 255, sodium 138, potassium 4.0, BUN 10, creatinine 0.56, magnesium 1.9, AST 31, ALT 17, troponins negative 3, BNP 128, triglycerides 89, HDL 81, LDL 77 FINAL ASSESSMENT AND PLAN: #1 chest discomfort, likely musculoskeletal #2 current smoker, smoking cessation encouraged PLAN: ACS workup for chest discomfort negative. We will follow with the patient in the office for echocardiogram and stress testing. Thank you kindly for this consultation. Past Medical History Past Medical History: Deep Vein Thrombosis (DVT) Additional Past Medical History / Comment(s): blood clot in stomach, chronic neck pain, chronic joint pain, glaucoma, shoulder fx in three places, tore ligaments in bilateral knees, broke bilateral ankles and tore ligaments in both knees, vertigo, possible early onset dementia; bulging disc. History of Any Multi-Drug Resistant Organisms: None Reported Past Surgical History: Section, Cholecystectomy Additional Past Surgical History / Comment(s): c-sectionx4 Past Anesthesia/Blood Transfusion Reactions: No Reported Reaction Additional Past Anesthesia/Blood Transfusion Reaction / Comment(s): pt recieved 4 units of blood 45 years ago and was exposed to hepatitis A, B and C Past Psychological History: Anxiety, Depression Smoking Status: Current every day smoker Past Alcohol Use History: None Reported Past Drug Use History: Marijuana Additional Drug Use History / Comment(s): Pt denies use of alcohol, marijuana, and other illicit substances even thougth the record indicates otherwise. When asked about the discrepancy, pt states "they don't know what they are talking about ". - Past Family History Father Additional Family Medical History / Comment(s): no history Brother(s) Family Medical History: Myocardial Infarction ([place]) Mother Additional Family Medical History / Comment(s): demensia Medications and Allergies Home Medications Medication Instructions Recorded Confirmed Type Amitriptyline HCl [Elavil] 25 mg PO TID 11/10/16 03/18/19 History LORazepam [Ativan] 1 mg PO BID PRN 11/10/16 03/18/19 History Acetaminophen with Codeine 1 tab PO Q6H PRN 03/18/19 03/18/19 History [Tylenol with Codeine #4 Tablet] Cephalexin [Keflex] 500 mg PO TID 03/18/19 03/18/19 History Ferrous Sulfate [Feosol] 325 mg PO BID 03/18/19 03/18/19 History Allergies Allergy/AdvReac Type Severity Reaction Status Date / Time Penicillins Allergy Unknown Verified 03/18/19 18:21 latex AdvReac Rash/Hives Verified 03/18/19 18:21 Physical Exam Vitals: Vital Signs Temp Pulse Pulse Resp BP BP Pulse Ox 03/19/19 08:12 80 03/19/19 08:02 76 03/19/19 07:15 98.1 F 73 18 102/63 96 03/19/19 04:00 98.2 F 91 18 105/69 98 03/18/19 23:48 97.9 F 88 17 161/79 98 03/18/19 23:47 88 16 03/18/19 23:38 80 16 03/18/19 21:01 90 03/18/19 20:55 90 03/18/19 18:05 98.5 F 89 18 139/82 99 03/18/19 16:40 99.1 F 89 18 150/84 98 03/18/19 14:35 98.8 F 99 18 123/80 96 Intake and Output 03/18/19 03/19/19 03/19/19 22:59 06:59 14:59 Intake Total 480 Balance 480 Intake: Oral 480 Other: # Voids 1 Weight 58.967 kg 69.5 kg Results 03/19/19 02:59 03/18/19 15:27 Cardiac Enzymes 03/18/19 03/18/19 03/18/19 Range/Units 15:27 15:27 20:55 AST 31 (14-36) U/L Troponin I <0.012 <0.012 (0.000-0.034) ng/mL 03/19/19 Range/Units 02:59 AST (14-36) U/L Troponin I <0.012 (0.000-0.034) ng/mL Coagulation 03/18/19 Range/Units 15:27 PT 9.4 (9.0-12.0) sec APTT 23.4 (22.0-30.0) sec Lipids 03/19/19 Range/Units 02:59 Triglycerides 89 (<150) mg/dL Cholesterol 176 (<200) mg/dL HDL Cholesterol 81 H (40-60) mg/dL CBC 03/18/19 03/19/19 Range/Units 15:27 02:59 WBC 11.7 H 9.9 (3.8-10.6) k/uL RBC 4.49 4.02 (3.80-5.40) m/uL Hgb 13.8 12.7 (11.4-16.0) gm/dL Hct 42.3 38.2 (34.0-46.0) % Plt Count 283 255 (150-450) k/uL Comprehensive Metabolic Panel 03/18/19 Range/Units 15:27 Sodium 138 (137-145) mmol/L Potassium 4.0 (3.5-5.1) mmol/L Chloride 108 H (98-107) mmol/L Carbon Dioxide 23 (22-30) mmol/L BUN 10 (7-17) mg/dL Creatinine 0.56 (0.52-1.04) mg/dL Glucose 97 (74-99) mg/dL Calcium 9.3 (8.4-10.2) mg/dL AST 31 (14-36) U/L ALT 17 (4-34) U/L Alkaline Phosphatase 56 (38-126) U/L Total Protein 7.5 (6.3-8.2) g/dL Albumin 4.6 (3.5-5.0) g/dL Current Medications Generic Name Dose Route Start Last Admin Trade Name Freq PRN Reason Stop Dose Admin Al Hydroxide/Mg Hydroxide 15 ml 03/18/19 16:42 Maalox PO Q6HR PRN Indigestion Albuterol/Ipratropium 3 ml 03/18/19 20:00 03/19/19 08:01 Duoneb 0.5 Mg-3 Mg/3 Ml Soln INHALATION 3 ml RT-Q4H ROSA MARIA Administration Amitriptyline HCl 25 mg 03/18/19 22:00 03/18/19 20:12 Elavil PO 25 mg TID ROSA MARIA Administration Heparin Sodium (Porcine) 5,000 unit 03/19/19 00:00 03/18/19 23:02 Heparin SQ 5,000 unit Q8HR ROSA MARIA Administration Morphine Sulfate 4 mg 03/18/19 16:42 Morphine Sulfate (Inj) IV Q4HR PRN Severe Pain Naloxone HCl 0.2 mg 03/18/19 16:42 Narcan IV Q2M PRN Opioid Reversal Nicotine 1 patch 03/18/19 17:30 03/18/19 17:56 Habitrol 21mg/24hr Patch TRANSDERM 1 patch DAILY ROSA MARIA Administration Ondansetron HCl 4 mg 03/18/19 16:42 Zofran IVP Q8HR PRN Nausea And Vomiting Quetiapine Fumarate 150 mg 03/18/19 21:00 03/18/19 23:01 Seroquel PO Not Given HS ROSA MARIA Intake and Output 03/18/19 03/19/19 03/19/19 22:59 06:59 14:59 Intake Total 480 Balance 480 Intake: Oral 480 Other: # Voids 1 Weight 58.967 kg 69.5 kg 03/19/19 02:59 03/18/19 15:27
[2019-03-19] MEDS: NICOTINE 21MG/24HR PATCH TRANSDERM SCH (11:14)
[2019-03-19] MEDS: HEPARIN SODIUM,PORCINE 5,000 UNIT/ML 1 ML VIAL SQ SCH (11:14)
[2019-03-19] MEDS: AMITRIPTYLINE HCL 25 MG TAB PO SCH (11:14)
[2019-03-19 11:20] VITALS: BP 110/70; TEMP 98.4
[2019-03-19 12:50] VITALS: PULSE 80
[2019-03-19 20:21] LABS: Hemoglobin A1C 5.7 % (4.0-6.0)
--- NOTE | 2019-03-29 22:34 | P.DS ---
Providers Date of admission: 03/18/19 16:42 Expected date of discharge: 03/19/19 Attending physician: Marshall Shepherd Consults: 03/18/19 16:43 Consult Physician Routine Consulting Provider: Jacobo Whitlock Consult Reason/Comments: chest pain Do you want consulting provider notified?: Yes Primary care physician: Ezequiel Flores [facility] Course: Discharge disgnosis Atypical chest pain. Mainly pleuritic or musculoskeletal in nature.CXR -ve, Ruled out acute coronary syndrome. Ongoing nicotine addiction Possible underlying COPD History of blood clots/DVT when she was several years ago Anxiety/depression History of marijuana use DVT prophylaxis Hospital course Patient is a 64-year-old female with a known history of chronic neck pain and previous history of DVT several years ago while she was . Ongoing nicotine addiction with currently everyday smoker, history of marijuana use came to ER with complaints of chest pain. Pain is mainly onto the left breast and radiating up to the shoulder. Patient has been having worsening pain for the past. He is not relieving at home. Pain gets worse with deep breathing and catching breath and mainly pruritic. No recent history of flulike illnesses or pneumonia. Patient says that she went to her sister's place about a week ago and exposed to sick contacts with flu. Denied any cough is from production. No sore throat or runny nose. Patient came to ER for further evaluation. Denied any fever or chills. EKG showed sinus rhythm. Chest x-ray showed COPD and no acute process. Troponin 2 negative D-dimer not elevated BNP not elevated Plan: Patient was continued on telemetry monitoring. Serial EKG and troponins. D- dimer not elevated. BNP not elevated. Patient was started on DuoNeb's and smoking patch was applied. Pain management with morphine. Smoking cessation has been counseled extensively. Cardiology was consulted. Patient will need follow-up with pulmonary clinic for function tests. Likely musculoskeletal. Cardiology Recommended follow-up in the clinic for stress test. Patient did improve clinically and is being discharged home now. PHYSICAL EXAMINATION: Patient is lying in the bed comfortably, no acute distress, awake alert and oriented.. HEENT: Normocephalic. Neck is supple. Pupils reactive. Nostrils clear. Oral cavity is moist. Ears reveal no drainage. Neck reveals no JVD, carotid bruits, or thyromegaly. CHEST EXAMINATION: Trachea is central. Symmetrical expansion. Lung parisi clear to auscultation and percussion. CARDIAC: Normal S1, S2 with no gallops. No murmurs ABDOMEN: Soft. Bowel sounds normal. No organomegaly. No abdominal bruits. Extremities: reveal no edema. No clubbing or cyanosis Neurologically awake, alert, oriented x3 with well-coordinated movements. No focal deficits noted Skin: No rash or skin lesions. Psychiatric: Coperative. Nonsuicidal Musculoskeletal: No joint swelling or deformity. Normal range of motion. Discharge vitals reviewed. Patient Condition at Discharge: Fair Plan - Discharge Summary New Discharge Prescriptions: New Albuterol Inhaler [Ventolin Hfa Inhaler] 1 - 2 puff INHALATION RT-Q6H PRN #1 inhaler PRN Reason: Shortness Of Breath Continue LORazepam [Ativan] 1 mg PO BID PRN PRN Reason: Anxiety Amitriptyline HCl [Elavil] 25 mg PO TID Acetaminophen with Codeine [Tylenol with Codeine #4 Tablet] 1 tab PO Q6H PRN PRN Reason: Pain Ferrous Sulfate [Feosol] 325 mg PO BID Discontinued Cephalexin [Keflex] 500 mg PO TID Discharge Medication List Amitriptyline HCl [Elavil] 25 mg PO TID 11/10/16 [History] LORazepam [Ativan] 1 mg PO BID PRN 11/10/16 [History] Acetaminophen with Codeine [Tylenol with Codeine #4 Tablet] 1 tab PO Q6H PRN 03/18/19 [History] Ferrous Sulfate [Feosol] 325 mg PO BID 03/18/19 [History] Albuterol Inhaler [Ventolin Hfa Inhaler] 1 - 2 puff INHALATION RT-Q6H PRN #1 inhaler 03/19/19 [Rx] Follow up Appointment(s)/Referral(s): Jacobo Whitlock MD [STAFF PHYSICIAN] - 03/23/19 8:30 am (Follow up in the office with Dr. Whitlock as scheduled ) Ezequiel Oshea III, MD [Primary Care Provider] - 1-2 days Patient Instructions/Handouts: Chest Pain (GEN) Discharge Disposition: HOME SELF-CARE
== END 2019-03-19 14:20 | disposition home or self-care (01) ==
LOC: EC 14:26 → 1SOBS 16:42
PROVIDERS: ADMIT Internal Medicine; ATTEND Internal Medicine
DX: R07.89 Other chest pain (principal); F17.200 Nicotine dependence, unspecified, uncomplicated; Z86.718 Personal history of other venous thrombosis and embolism; F41.9 Anxiety disorder, unspecified; F32.9 Major depressive disorder, single episode, unspecified; F12.11 Cannabis abuse, in remission; J44.9 Chronic obstructive pulmonary disease, unspecified; Z71.6 Tobacco abuse counseling; G89.29 Other chronic pain; M54.2 Cervicalgia; M25.50 Pain in unspecified joint; H40.9 Unspecified glaucoma; M51.9 Unspecified thoracic, thoracolumbar and lumbosacral intervertebral disc disorder; Z79.899 Other long term (current) drug therapy; Z79.891 Long term (current) use of opiate analgesic; Z88.0 Allergy status to penicillin; Z91.040 Latex allergy status; Z98.890 Other specified postprocedural states; Z90.49 Acquired absence of other specified parts of digestive tract; Z86.79 Personal history of other diseases of the circulatory system; Z87.81 Personal history of (healed) traumatic fracture; Z87.828 Personal history of other (healed) physical injury and trauma; Z20.5 Contact with and (suspected) exposure to viral hepatitis; Z82.49 Family history of ischemic heart disease and other diseases of the circulatory system; Z81.8 Family history of other mental and behavioral disorders
CPT/HCPCS: 93005 ×2; 96372 ×2; 99285; 36415; 94640 ×4; 85379; 83880; 80061; 80053; 84443; 83735; 84484 ×2; 85025 ×2; 85610; 85730; 83036; 71046; G0378 ×2; S4990 ×2; J1644 ×2

== ENCOUNTER 2019-11-19 13:37 | Inpatient (IN) | payer MEDICARE, OTHER ==
[2019-11-19] MEDS ORDERED: SODIUM CHLORIDE 0.9% 1,000 ML IV STA ×3 (14:02→17:39)
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
[2019-11-19 15:00] LABS: Basophils # (A) 0.1 k/uL (0-0.2); Basophils % (A) 1 %; Eosinophils % (A) 0 %; HCT 42.9 % (34.0-46.0); HGB 14.1 gm/dL (11.4-16.0); Lymphocytes # (A) 1.6 k/uL (1.0-4.8); Lymphocytes % (A) 16 %; Mean Platelet Volume 7.7; Monocytes # (A) 0.5 k/uL (0-1.0); Monocytes % (A) 4 %; Neutrophils % (A) 78 %; Platelet Count 296 k/uL (150-450); RBC 4.57 m/uL (3.80-5.40); WBC 10.3 k/uL (3.8-10.6)
[2019-11-19 15:07] LABS: Lactic Acid, Venous 1.1 mmol/L (0.7-2.0)
[2019-11-19 15:25] LABS: Partial Thromboplastin Time 20.9 sec (22.0-30.0)
[2019-11-19 15:35] LABS: ALT 40 U/L (4-34); AST 50 U/L (14-36); Acetaminophen <10.0 ug/mL; African American GFR (CKD) >90 (>60 ml/min/1.73 sqM); Albumin 4.7 g/dL (3.5-5.0); Alcohol <10 mg/dL; Alkaline Phosphatase 52 U/L (38-126); Anion Gap 17 mmol/L; Blood Urea Nitrogen 45 mg/dL (7-17); Calcium 9.7 mg/dL (8.4-10.2); Carbon Dioxide 17 mmol/L (22-30); Chloride 108 mmol/L (98-107); Creatine Kinase 309 U/L (30-135); Glucose 97 mg/dL (74-99); Magnesium 2.2 mg/dL (1.6-2.3); Non-African American GFR(CKD) 86 (>60 ml/min/1.73 sqM); Phosphorus 4.3 mg/dL (2.5-4.5); Salicylate <1.0 mg/dL; Sodium 142 mmol/L (137-145); Total Bilirubin 0.7 mg/dL (0.2-1.3); Total Protein 7.1 g/dL (6.3-8.2)
[2019-11-19 16:39] LABS: Amphetamine Screen,Urine Not Detected (NotDetected); Barbiturate Screen,Urine Not Detected (NotDetected); Benzodiazepines Screen,Urine Not Detected (NotDetected); Cocaine Screen,Urine Not Detected (NotDetected); Methadone Screen, Urine Not Detected (NotDetected); Opiate Screen,Urine Detected (NotDetected); Oxycodone Screen, Urine Not Detected (NotDetected); Phencyclidine Screen,Urine Not Detected (NotDetected); Tricyclic Antidepressant,Urine Detected (NotDetected); Urn Cannabinoid Scrn Not Detected (NotDetected)
[2019-11-19 16:40] LABS: Appearance,Urine Cloudy (Clear); Bacteria,Urine Rare /hpf; Bilirubin,Urine Negative (Negative); Blood,Urine Small (Negative); Color,Urine Yellow; Glucose,Urine (UA) Negative (Negative); Hyaline Casts,Urine 11 /lpf (0-2); Ketones,Urine 4+ (Negative); Leukocyte Esterase,Urine Trace (Negative); Mucus,Urine Occasional /hpf; Nitrite,Urine Negative (Negative); Protein,Urine 2+ (Negative); RBC,Urine 6 /hpf (0-5); Specific Gravity,Urine 1.021 (1.001-1.035); Squamous Epithelial Cell,Urine 1 /hpf (0-4); WBC,Urine 10 /hpf (0-5)
[2019-11-19] MEDS ORDERED: SODIUM CHLORIDE 0.9% 500 ML 500 ML IV STA (17:39)
[2019-11-19] MEDS ORDERED: ALBUTEROL NEBULIZED 2.5 MG/3 ML INHALATION PRN (19:16)
[2019-11-19] MEDS ORDERED: DOCUSATE 100 MG CAP PO PRN (19:16)
[2019-11-19] MEDS ORDERED: FERROUS SULFATE 325 MG TAB PO PRN (19:16)
[2019-11-19] MEDS ORDERED: Acetaminophen-Codeine 300-30mg TAB PO PRN (19:16)
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
[2019-11-19] MEDS: HEPARIN SODIUM,PORCINE 5,000 UNIT/ML 1 ML VIAL SQ SCH (22:53)
[2019-11-20 06:14] LABS: Basophils # (A) 0.1 k/uL (0-0.2); Basophils % (A) 1 %; Eosinophils # (A) 0.1 k/uL (0-0.7); Eosinophils % (A) 1 %; HGB 11.8 gm/dL (11.4-16.0); Lymphocytes # (A) 2.5 k/uL (1.0-4.8); Lymphocytes % (A) 31 %; MCH 29.7 pg (25.0-35.0); MCHC 31.8 g/dL (31.0-37.0); MCV 93.3 fL (80.0-100.0); Mean Platelet Volume 7.8; Monocytes # (A) 0.5 k/uL (0-1.0); Monocytes % (A) 6 %; Neutrophils # (A) 4.8 k/uL (1.3-7.7); Neutrophils % (A) 59 %; Platelet Count 239 k/uL (150-450); RBC 3.97 m/uL (3.80-5.40); RDW 12.9 % (11.5-15.5); WBC 8.2 k/uL (3.8-10.6)
[2019-11-20] MEDS: HEPARIN SODIUM,PORCINE 5,000 UNIT/ML 1 ML VIAL SQ SCH ×2 (08:33→23:01)
[2019-11-20] MEDS: PANTOPRAZOLE 40 MG TABLET PO SCH (08:33)
[2019-11-20 09:46] LABS: African American GFR (CKD) 110.9 (60.0-200.0); Albumin 3.8 g/dL (3.80-4.90); Albumin/Globulin Ratio 2.53 (1.60-3.17); Anion Gap 6.8 mmol/L (4.00-12.00); Calcium 8.8 mg/dL (8.7-10.3); Carbon Dioxide 24.2 mmol/L (21.6-31.8); Globulin 1.5 g/dL (1.6-3.3); Non-African American GFR(CKD) 95.7 (60.0-200.0); Potassium 3.7 mmol/L (3.5-5.5); Total Bilirubin 0.4 mg/dL (0.2-1.2); Total Protein 5.3 g/dL (6.2-8.2)
[2019-11-20] MEDS: FOLIC ACID 1 MG TAB PO SCH (13:08)
[2019-11-20] MEDS: MULTIVITAMINS, THERA 1 EACH TAB PO SCH (13:08)
[2019-11-20] MEDS ORDERED: ZIPRASIDONE 20 MG VIAL IM PRN (16:29)
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
--- NOTE | 2019-11-20 19:05 | PN ---
PROGRESS NOTE DATE OF SERVICE: 11/20/2019 DATE OF SERVICE: This 64-year-old woman who was admitted with change in mental status, acute metabolic encephalopathy with possible acute UTI with sepsis, is being closely monitored. The patient is apparently psychotic and refusing multiple evaluations and not even letting the staff to enter the room at this time, saying that the patient's room needs urgent disinfection. Past medical history reviewed. REVIEW OF SYSTEM: Could not be taken the patient is confused. CURRENT MEDICATIONS: Reviewed and include: Tylenol, Rocephin, vancomycin, vitamin D2, folic acid, heparin, multivitamins and Protonix. PHYSICAL EXAM: Patient is conscious, confused. Pulse 84. Blood pressure 111/73, respiration 17, temperature 98 degrees, pulse ox 98% on room air. HEENT is conjunctivae normal. NECK: No JVD. CARDIOVASCULAR: S1, S2 muffled. RESPIRATORY SYSTEM: Breath sounds diminished at the bases. ABDOMEN: Soft, nontender. LEGS are no edema. No swelling. Nervous system: No focal deficits. LABS: CBC within normal limits. BUN is 39 and glucose is 112, and AST is 39, ALT is 37. Troponin is 1.5. UA is cloudy: Covid-19 is negative. ASSESSMENT: 1. Change in mental status, acute metabolic encephalopathy, possibly acute urinary tract infection with sepsis present on admission. 2. Acute psychosis, possibly. 3. Low TSH. 4. Elevated AST/ALT, rule out acute hepatitis mild. 5. Elevated creatinine kinase, mild rhabdomyolysis. 6. History of deep vein thrombosis. 7. History of chronic neck and back pain. 8. History of noncompliance. 9. History of glaucoma. 10.History of vertigo. 11.History of cholecystectomy. 12.History of anxiety, depression. 13.History of nicotine dependence. 14.History of THC. RECOMMENDATIONS AND DISCUSSION: Recommend to continue current management and symptomatic treatment. Otherwise at this time, the patient has refused multiple evaluations. I recommend Psychiatry to come and evaluate the patient and the patient might need some intervention for psychosis to increase the possibility of compliance. Otherwise, the patient, as mentioned earlier, patient refused multiple evaluations including CT of the brain. The prognosis is guarded. Further recommendations to follow. We will ask social service director and case management team also to evaluate the home situation also as well. MMODL / IJN: [id number] /
[2019-11-21 05:06] LABS: Basophils % (A) 0 %; Eosinophils % (A) 0 %; HCT 40.7 % (34.0-46.0); HGB 13.5 gm/dL (11.4-16.0); Lymphocytes # (A) 2.7 k/uL (1.0-4.8); Lymphocytes % (A) 28 %; MCH 31.3 pg (25.0-35.0); MCHC 33.3 g/dL (31.0-37.0); MCV 94.2 fL (80.0-100.0); Mean Platelet Volume 7.8; Monocytes # (A) 0.6 k/uL (0-1.0); Monocytes % (A) 6 %; Neutrophils % (A) 63 %; Platelet Count 267 k/uL (150-450); RBC 4.32 m/uL (3.80-5.40); RDW 13.5 % (11.5-15.5); WBC 9.5 k/uL (3.8-10.6)
[2019-11-21 05:55] VITALS: TEMP 98.8
[2019-11-21] MEDS: PANTOPRAZOLE 40 MG TABLET PO SCH (08:46)
[2019-11-21] MEDS: HEPARIN SODIUM,PORCINE 5,000 UNIT/ML 1 ML VIAL SQ SCH ×2 (08:46→20:23)
[2019-11-21 09:30] LABS: ALT 36 U/L (8-44); AST 31 U/L (13-35); African American GFR (CKD) 110.9 (60.0-200.0); Albumin/Globulin Ratio 2.11 (1.60-3.17); Alkaline Phosphatase 45 U/L (41-126); BUN/Creat Ratio 56.67 Ratio (12.00-20.00); C Reactive Protein <0.4 mg/dL (0.0-0.8); Calcium 9.3 mg/dL (8.7-10.3); Carbon Dioxide 27.2 mmol/L (21.6-31.8); Chloride 110 mmol/L (96-109); Globulin 1.9 g/dL (1.6-3.3); Glucose 108 mg/dL (70-110); Non-African American GFR(CKD) 95.7 (60.0-200.0); Potassium 3.6 mmol/L (3.5-5.5); Sodium 143 mmol/L (135-145); Total Bilirubin 0.4 mg/dL (0.3-1.2); Total Protein 5.9 g/dL (6.2-8.2)
[2019-11-21 11:34] LABS: Erythrocyte Sedimentation Rate 6 mm/Hr (0-30)
[2019-11-21] MEDS: FOLIC ACID 1 MG TAB PO SCH (11:53)
[2019-11-21] MEDS: MULTIVITAMINS, THERA 1 EACH TAB PO SCH (11:55)
[2019-11-21 12:34] VITALS: BP 148/79
[2019-11-21 23:46] VITALS: PULSE 84; RESP 18
[2019-11-22] MEDS: PANTOPRAZOLE 40 MG TABLET PO SCH (07:21)
[2019-11-22] MEDS: HEPARIN SODIUM,PORCINE 5,000 UNIT/ML 1 ML VIAL SQ SCH (07:22)
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
--- NOTE | 2019-11-22 10:50 | CDI ---
Documentation Clarification Form Date: 11/22/2019 10:41:40 AM From: Molly CunninghamPerezBANG coronado, CCDS Admit Date: 11/21/2019 09:15:00 AM Patient Name: Kristine Wilkins Visit Number: [id number] Discharge Date: ATTENTION: The Clinical Documentation Specialists (CDI) and [facility] Coding Staff appreciate your assistance in clarifying documentation. Please respond to the clarification below the line at the bottom and electronically sign. The CDI & [facility] Coding staff will review the response and follow-up if needed. Please note: Queries are made part of the Legal Health Record. If you have any questions, please contact the author of this message via ITS. Dr. Yumi Prabhakar: Per the 11/18 History & Physical, 11/19 Progress Note & 11/20 Discharge Summary: "Change in mental status, metabolic encephalopathy, possible urinary tract infection with sepsis, rule out psychosis." History/Risk Factors: DVT, Chronic neck & back pain, Glaucoma, Vertigo, Anxiety, Depression & Nicotine Dependence. Clinical Indicators: Patient presented to the ED on 11/18 via EMS after being found by police in a park, disheveled covered in feces & urine. VS 11/20: T 98.2, P 99, R 18, BP 146/87, PO 100 RA - 94 RA LAB 11/20: Neut 8.0^, BUN 45^, AST 50^, ALT 40^, TSH 0.445*. UA: cloudy, 2+ protein, 4+ ketones, small blood, Trace Esterase, WBC 10^. Lactic acid 11/20: 1.1 11/19 Blood cx: preliminary neg >48 hrs, 11/19 Urine Cx: final negative Treatment: IV fluid bolus 1,000 mls @ 999 mls/hr x3, IV Rocephin, IM Geodon In your professional opinion, please clarify if these findings signify one of the following conditions, whether the condition is POA, and cause, if known: Sepsis ruled out Sepsis ruled in, please specify cause: Other, please specify Unable to determine Present on Admission: Yes or No (Last Revision: May 2017) Unable to determine MTDD
[2019-11-22] MEDS: MULTIVITAMINS, THERA 1 EACH TAB PO SCH (11:34)
[2019-11-22] MEDS: FOLIC ACID 1 MG TAB PO SCH (11:34)
--- NOTE | 2019-11-22 11:35 | PN ---
PROGRESS NOTE DATE OF SERVICE: 11/22/2019 This 64-year-old woman who was admitted with change in mental status, metabolic encephalopathy, and also had possible psychosis, also. The patient is being closely monitored. No chest pain. No palpitations. No fever. PHYSICAL EXAMINATION: On exam, alert and oriented x3. Pulse 72, blood pressure 140/77 respiration 16, temperature 98.9, pulse ox 99 percent on room air. HEENT: Conjunctivae normal. NECK: No JVD. CARDIOVASCULAR: S1, S2 muffled. RESPIRATION: Breath sounds diminished at the bases. ABDOMEN: Soft, nontender. LEGS are no edema. No swelling. NERVOUS SYSTEM: No focal deficits. LABS: Reviewed. ASSESSMENT: 1. Change in mental status possible acute metabolic encephalopathy, possibly secondary to urinary tract infection with sepsis. 2. Possible psychosis. 3. Low TSH. 4. Elevated AST/ALT; rule out hepatic hepatitis, mild. 5. Elevated creatinine kinase. 6. History of deep vein thrombosis. 7. Chronic neck and back pain. 8. History of noncompliance. 9. Glaucoma. 10.History of vitiligo. 11.History of cholecystomy. 12.Anxiety, depression. RECOMMENDATIONS AND DISCUSSION: Recommend to continue antibiotics. Otherwise, the patient is stable. Transferred to psych. Continue rest of medications. Prognosis guarded. Further recommendations to follow. MMODL / IJN: [id number] /
--- NOTE | 2019-11-22 22:40 | DS ---
DISCHARGE SUMMARY DISCHARGE ADDENDUM: DATE OF SERVICE: 11/22/2019 This 64-year-old woman who was admitted with change in mental status and found to have UTI with sepsis improved significantly. The patient also had features of psychosis and was recommended to be transferred to the psych floor. Please refer to my previous dictation for list of discharge diagnoses and further details. Please also refer to multiple progress notes and history and physical and consultations and staff notes for further information. MMODL / IJN: [id number] /
[2019-11-23] MEDS ORDERED: ERGOCALCIFEROL 50,000 UNIT CAP PO SCH (09:00)
== END 2019-11-22 15:47 | DRG 871 ==
LOC: EC 13:37 → 6NMEDSUR 17:40 → INTOOBSV 17:40 → 6NMEDSUR 18:12 → OBSVTOIN 11-21 09:15
PROVIDERS: ADMIT Hospitalist; ATTEND Hospitalist
DX: A41.9 Sepsis, unspecified organism (principal); G93.41 Metabolic encephalopathy; N39.0 Urinary tract infection, site not specified; F23 Brief psychotic disorder; M62.82 Rhabdomyolysis; F41.9 Anxiety disorder, unspecified; F32.9 Major depressive disorder, single episode, unspecified; G89.29 Other chronic pain; H40.9 Unspecified glaucoma; Z59.0 Homelessness; F17.210 Nicotine dependence, cigarettes, uncomplicated; M19.90 Unspecified osteoarthritis, unspecified site; M54.2 Cervicalgia; M54.9 Dorsalgia, unspecified; F03.90 Unspecified dementia, unspecified severity, without behavioral disturbance, psychotic disturbance, mood disturbance, and anxiety; R42 Dizziness and giddiness; Z82.49 Family history of ischemic heart disease and other diseases of the circulatory system; Z86.718 Personal history of other venous thrombosis and embolism; Z90.49 Acquired absence of other specified parts of digestive tract; Z91.19 Patient's noncompliance with other medical treatment and regimen; Z79.899 Other long term (current) drug therapy; Z20.828 Contact with and (suspected) exposure to other viral communicable diseases
CPT/HCPCS: 36415; 80053; 80306; 80320; 80329; 81001; 82140; 82550; 83520; 83605; 83735; 83880; 84100; 84443; 84484; 85025; 85379; 85610; 85652; 85730; 86140; 87040; 87086; 93005; 96361; 96365; 99285

== ENCOUNTER 2019-11-22 15:26 | Inpatient (IN) | payer MEDICARE, MEDICAID ==
[2019-11-22] MEDS ORDERED: Acetaminophen-Codeine 300-30mg TAB PO PRN (16:43)
[2019-11-22] MEDS ORDERED: ALBUTEROL HFA INHALER INHALATION PRN (16:43)
[2019-11-22] MEDS ORDERED: FERROUS SULFATE 325 MG TAB PO PRN (16:43)
[2019-11-22] MEDS ORDERED: ZIPRASIDONE 20 MG VIAL IM PRN (16:44)
[2019-11-22] MEDS: NICOTINE 14MG/24HR PATCH TRANSDERM SCH (21:39)
[2019-11-23] MEDS: PANTOPRAZOLE 40 MG TABLET PO SCH (10:30)
[2019-11-23] MEDS: NICOTINE 14MG/24HR PATCH TRANSDERM SCH (10:30)
[2019-11-23] MEDS: MULTIVITAMINS, THERA 1 EACH TAB PO SCH (11:07)
[2019-11-23] MEDS: FOLIC ACID 1 MG TAB PO SCH (11:07)
--- NOTE | 2019-11-23 11:09 | P.HP ---
Psychiatric H&P - . H&P Date: 11/23/19 History & Physical: Allergies Allergy/AdvReac Type Severity Reaction Status Date / Time Penicillins Allergy Unknown Verified 11/19/19 15:37 latex AdvReac Rash/Hives Verified 11/19/19 15:37 Vital Signs Temp 97.6 F 11/22/19 16:25 Pulse 82 11/22/19 16:25 Resp 18 11/22/19 16:25 BP 146/97 11/22/19 16:25 Pulse Ox 98 11/22/19 16:25 Intake & Output 11/22/19 11/23/19 11/23/19 18:59 06:59 18:59 Weight 50.7 kg Laboratory Last Values Triglycerides 124 mg/dL (<150) 11/20/19 05:51 Cholesterol 159 mg/dL (<200) 11/20/19 05:51 LDL Cholesterol, Calc 67 mg/dL (0-99) 11/20/19 05:51 HDL Cholesterol 67 mg/dL (40-60) H 11/20/19 05:51 TSH 0.472 mIU/L (0.465-4.680) 11/20/19 05:51 11/23/19 10:40 IDENTIFYING DATA: Patient is a 64-year-old, female, with significant history of DVT, vertigo, anxiety, depression, who was brought to the hospital on 11/19/2019 after being found disheveled and disorganized in the park by police where she was also covered with urine and feces. HPI: Patient presented to the hospital on 11/19/2019. Patient was a poor historian upon initial evaluation on the hospital floor. She was admitted for management of altered mental status and started on empiric antibiotics for urinary tract infection. Upon review of the EPS assessment, the patient would only speak with the EPS RN at her doorway. The patient was refusing medications. Dr. June noted that the patient was irritable and delusional. Patient reports that for the last few weeks she has "not doing well." She states that she has been completely fatigued. She also reports that she has been "suicidal lately but not now." She does not endorse any auditory or visual hallucinations. But she does report some paranoia and "not feeling safe." She is unable to elaborate any further information and terminated the interview. PAST PSYCHIATRIC HISTORY: Patient states that she follows outpatient care with [facility] with her last appointment on 09/19/2019. She has been diagnosed with major depressive disorder and generalized anxiety disorder. She was not prescribed any sector. Medications aside from Elavil. Reports prior psychiatric admissions but is unable to recall when and what for. Patient refused to answer anymore questions regarding suicide. PMH: History of DVT, chronic back pain, chronic joint pain, cholecystectomy, anxiety, depression, history of nicotine dependence ALLERGIES: as per EMR CHEMICAL DEPENDENCY HISTORY: Unable to obtain at this time. FAMILY PSYCHIATRIC/SUBSTANCE USE HISTORY: Unable to obtain at this time. SOCIAL HISTORY: Unable to obtain at this time. MENTAL STATUS EXAM: General Appearance: Patient appears to be stated age is alert, directable, and attempts to cooperate. Patient appears to have fair hygiene and grooming. Behavior: Patient is seated without any agitated behavior. Patient grew frustrated when asked questions and terminated the interview early. Speech: Patient's speech is fluent and nonpressured. Slow and nonspontaneous. Mood/Affect: Patient reports their mood is depressed, affect is congruent and constricted. Suicidality/Homicidality: Patient denies having any homicidal ideation intent or plan. Denies any suicidal ideations intent or plan Perceptions: Patient denies any visual hallucinations and denies any auditory hallucinations Though content/process: Patient reports some paranoia but would not elaborate further. Thought process appears to be linear and short conversation. Memory and concentration: Unable to assess as patient terminated the interview. She is a poor historian. Judgment and insight: poor STRENGTHS/WEAKNESSES: strength is that patient is resilient. Weakness is that patient is a very poor historian and appears to be disorganized. INTELLECT: Unable to assess IMPRESSIONS: Altered mental status Major depressive disorder as per history from [facility] Generalized anxiety disorder as per history from [facility] Rule out psychosis PLAN: -Patient is admitted under involuntary status to [facility]HU for stabilization of psychiatric symptoms and safety. A second certification was completed and along with petition will be filed for court. -Medications : Will start patient on Remeron 15 mg by mouth at bedtime to address depression and insomnia issues. -Ativan and Geodon PRN for agitation/aggression -Patient was informed of the risks, benefits and side effects of the medication and patient verbally consented to taking the medications. Patient signed med consent form and was placed in chart. -Internal Medicine consult to perform medical evaluation and physical. -SW on board for discharge planning. Encourage patient to participate in groups to work on coping skills. 11/23/19 11:06
[2019-11-23] MEDS: CEFDINIR 300 MG CAP PO SCH ×2 (13:28→20:54)
[2019-11-23] MEDS: MIRTAZAPINE 15 MG TAB PO SCH (20:53)
[2019-11-23 22:22] LABS: Hemoglobin A1C 6.3 % (4.0-6.0)
--- NOTE | 2019-11-23 23:19 | CONS ---
CONSULTATION DATE OF SERVICE: 11/23/2019 REASON FOR CONSULTATION: Advice regarding UTI and other medical issues, requested by Psychiatry. HISTORY OF PRESENT ILLNESS: This 64-year-old woman with a past medical history of apparent psychosis, schizophrenia and DJD was admitted with change in mental status as well as UTI with sepsis. The patient improved significantly. She has been transferred to the psych floor at this time. Currently the patient still has disorganized thoughts. The patient is being closely monitored. No fever, no rigors, no headache, loss of consciousness, seizures. PAST MEDICAL HISTORY: History of DVT, history of schizophrenia, apparently psychosis, anxiety, depression, history of smoking THC. HOME MEDICATIONS: 1. Crestor 5 mg at bedtime. 2. Protonix 40 mg with breakfast. 3. Multivitamins. 4. Ativan 1 mg q.8 p.r.n. 5. Folic acid 1 mg p.o. daily. 6. Iron sulfate 320 mg b.i.d. p.r.n. 7. Drisdol. 8. Colace 100 mg b.i.d. p.r.n. 9. Ceftin 500 mg p.o. b.i.d. 10.Elavil 25-50 mg p.o. t.i.d. p.r.n. 11.Ventolin 1 to 2 puffs q.6 p.r.n. 12.Tylenol p.r.n. ALLERGIES: PENICILLIN and LATEX. FAMILY HISTORY: History of myocardial infarction in the family. SOCIAL HISTORY: History of smoking. REVIEW OF SYSTEMS: Review of systems could not be taken; the patient is confused at this time. PHYSICAL EXAMINATION: Pulse is 82, blood pressure 146/97, respiration 18, temperature 97.6, pulse ox 98% on room air. HEENT: Conjunctivae normal. NECK: No jugular venous distention. CARDIOVASCULAR SYSTEM: S1, S2 muffled. RESPIRATORY SYSTEM: Breath sounds diminished at the bases. No rhonchi. No crackles. ABDOMEN: Soft, non-tender. LEGS: No edema. No swelling. NERVOUS SYSTEM: Higher functions as mentioned earlier. Moves all 4 limbs. Eye movements are full in all directions. No focal motor or sensory deficit. LYMPHATICS: No lymph node palpable in neck, axillae or groin. SKIN: No ulcer, rash, bleeding. JOINTS: No active deforming arthropathy. LABS: HDL 67. Other labs are pending. ASSESSMENT: 1. Acute urinary tract infection with sepsis, present on admission. 2. Change in mental status, recent metabolic encephalopathy. 3. Possible acute psychosis, schizophrenia. 4. Low TSH. 5. Elevated AST, ALT. 6. Increased creatinine kinase and mild rhabdomyolysis, present on admission. 7. History of deep vein thrombosis. 8. Chronic neck and back pain. 9. History of noncompliance. 10.Glaucoma. 11.History of cholecystectomy. 12.History of anxiety, depression. 13.History of nicotine dependence. 14.History of tetrahydrocannabinol. RECOMMENDATIONS AND DISCUSSION: I recommend to continue current medications, continue with the monitoring, symptomatic treatment. Resume the home medications. Complete the course of antibiotics with Moisesicef. Recommend that she closely follow with her primary physician in the outpatient setting. Will follow the patient closely. I will be happy to review abnormal labs. Thank you for letting us participate in the care of this patient. MMWELLINGTON / DAVIDN: [id number] /
[2019-11-24] MEDS: CEFDINIR 300 MG CAP PO SCH ×2 (09:11→19:48)
[2019-11-24] MEDS: FOLIC ACID 1 MG TAB PO SCH (09:12)
[2019-11-24] MEDS: MULTIVITAMINS, THERA 1 EACH TAB PO SCH (09:12)
[2019-11-24] MEDS: PANTOPRAZOLE 40 MG TABLET PO SCH (09:13)
[2019-11-24] MEDS: NICOTINE 14MG/24HR PATCH TRANSDERM SCH (09:13)
--- NOTE | 2019-11-24 10:29 | P.PN ---
Progress Note - Text Progress Note Date: 11/24/19 Interval History: Patient was seen in her bedroom and was directable and agreeable to speak with senior mortgage underwriter in the office. Patient reports that she feels "better today." When asked to define what she is feeling better from, patient states "I don't now I just feel better." At this time patient denies any suicidal or homical ideations, intent or plan. Patient denies any auditory, visual hallucinations and denies any paranoia or delusions. She has been refusing her Remeron and other medications. Patient states that these medications are "too heavy" and that she would refuse them as she does not feel like she needs them. When asked about where she would go after discharge, patient states that she would like to see her family. When further explored, patient stated that her family lives all over including [place] and [place]. This provider try to explore the condit ion that led up to her admission, but patient became annoyed and terminated the interview. Mental Status Exam: General Appearance: Patient appears slightly older than stated age, is alert, directable, and intermittently cooperative. Behavior: Patient is calmly seated without any agitated behavior. Speech: Patient's speech is fluent and nonpressured. Mood/Affect: Mood is improving mildly, affect is congruent and constricted. Suicidality/Homicidality: Patient denies having any suicidal or homicidal ideation intent or plan. Perceptions: Patient denies any visual hallucinations and denies any auditory hallucinations Though content/process: There is no evidence of any delusional thought content and thought process is linear and goal-directed. Memory and concentration: AOX3, grossly intact for the purposes of this session Judgment and insight: Poor Assessment Psychosis, unspecified Major depressive disorder, as per history from [facility] Generalized anxiety disorder, as per history from [facility] Plan: -Patient continues to meet criteria for inpatient psychiatric admission for symptom stabilization and safety. Patient is involuntarily admitted at this time. -She displays limited insight and poor judgment in terms of being able to care for herself. -Medications: Continue Remeron 15 mg by mouth at bedtime to address depression and insomnia. Patient has been refusing this medication. -When necessary Ativan and Geodon for agitation/aggression. -SW on board for discharge planning. Encouraged the patient to participate in milieu.
[2019-11-24] MEDS: MIRTAZAPINE 15 MG TAB PO SCH (19:48)
[2019-11-25] MEDS: CEFDINIR 300 MG CAP PO SCH ×2 (09:44→21:13)
[2019-11-25] MEDS: PANTOPRAZOLE 40 MG TABLET PO SCH (09:45)
[2019-11-25] MEDS: NICOTINE 14MG/24HR PATCH TRANSDERM SCH (09:45)
--- NOTE | 2019-11-25 09:54 | P.PN ---
Progress Note - Text Progress Note Date: 11/25/19 Interval History: Patient was seen wandering the hallways and was directable and agreeable to speak with contract writer in the office. She dresses that she is feeling better today after trying the Remeron. She states that she feels less depressed and that she was able to sleep well. She does continue to endorse poor appetite. At this time patient denies any suicidal or homicidal ideations, intent or plan. Patient denies any auditory, visual hallucinations and denies any paranoia or delusions. Patient endorses mild sedation from the medication but has been compliant with her medications. Mental Status Exam: General Appearance: Patient appears to be stated age is alert, directable, and cooperative. Behavior: Patient is calmly seated without any agitated behavior. Speech: Patient's speech is fluent and nonpressured. Mood/Affect: Mood is improving mildly, affect is congruent and constricted. Suicidality/Homicidality: Patient denies having any suicidal or homicidal ideation intent or plan. Perceptions: Patient denies any visual hallucinations and denies any auditory hallucinations Though content/process: There is no evidence of any delusional thought content and thought process is linear and goal-directed. Memory and concentration: AOX3, grossly intact for the purposes of this session Judgment and insight: Improving mildly Assessment Psychosis, unspecified Major depressive disorder Generalized anxiety disorder Plan: -Patient continues to meet criteria for inpatient psychiatric admission for symptom stabilization and safety. Patient is involuntarily admitted at this time. -Judgment and insight appear to be improving today. Patient is alert and oriented in all spheres today. -She is uncertain where she will be going after discharge. -Medications: Continue Remeron 15 mg by mouth at bedtime for depression and insomnia. -When necessary Ativan and Geodon for agitation/aggression. -SW on board for discharge planning. Encouraged the patient to participate in milieu.
[2019-11-25] MEDS: MULTIVITAMINS, THERA 1 EACH TAB PO SCH (12:54)
[2019-11-25] MEDS: FOLIC ACID 1 MG TAB PO SCH (12:54)
[2019-11-25] MEDS: MIRTAZAPINE 15 MG TAB PO SCH (21:13)
[2019-11-26] MEDS: MAG HYDROX/AL HYDROX/SIMETH 30 ML CUP PO PRN (00:22)
[2019-11-26 06:01] VITALS: RESP 16
[2019-11-26] MEDS: NICOTINE 14MG/24HR PATCH TRANSDERM SCH (08:46)
[2019-11-26] MEDS: PANTOPRAZOLE 40 MG TABLET PO SCH (08:46)
[2019-11-26] MEDS: MULTIVITAMINS, THERA 1 EACH TAB PO SCH (13:32)
[2019-11-26] MEDS: FOLIC ACID 1 MG TAB PO SCH (13:32)
[2019-11-26] MEDS: MELOXICAM 7.5 MG TAB PO SCH (16:32)
[2019-11-26] MEDS: MIRTAZAPINE 15 MG TAB PO SCH (21:37)
--- NOTE | 2019-11-26 21:58 | PN ---
PROGRESS NOTE DATE OF SERVICE: 11/26/2019. CHIEF COMPLAINT: The patient was brought to the hospital after being found disheveled and disorganized in the park, she was transferred from the medical floor. The patient has been doing fair. She had a quiet day yesterday. She tends to keep to herself. She will spend a fair amount of time in her room. She will interact a little with others, though mostly keeps to herself. She did not attend groups yesterday. She slept fair. It is noted that at 6:30 am she complained to nursing about intermittent chest pain. A medicine consult was obtained. She seemed to do better after she was assessed. Today she has been up. She continues to be fairly withdrawn in her manner. She has not attended groups today. She acknowledged some periods of confusion. A significant issue is her being homeless. She has had some pain complaints including pain in her feet. She stated that she had used Elavil in the past, which she felt was more effective for her than the Remeron, though she does feel Remeron has helped some. She is aware that the Elavil could be a risk relating to heart issues. She tolerates her psychotropic medications. MENTAL STATUS: Patient sat without restlessness. Eye contact was fair. She was slowed in her manner and speech. She answered questions with brief responses. Her thoughts were clear. She did not say a lot. Her affect was constricted. Her mood depressed. She seems somewhat distressed. There was no indication of thought disorder. She voiced no thoughts of harm. She was oriented and alert. ASSESSMENT: I will continue the current diagnosis and treatment plan. We will continue to engage the patient in individual and group therapeutic activities. I will start the patient on meloxicam 7.5 mg a day for pain complaints along with Excedrin p.r.n., which the patient requested. In the long run, these may be more beneficial to her than opioid pain medications. I reviewed her antidepressant as far as indications, potential side effects and treatment expectations. She has seen some improvement with Remeron and we discussed that adding anti-inflammatory may reduce some of her pain complaints and improve her condition overall. We will focus on stabilization and discharge planning. MMODL / IJN: [id number] /
[2019-11-27] MEDS ORDERED: traZODone HCL 50 MG TAB PO STA (00:17)
[2019-11-27] MEDS: ASPIRIN-ACET-CAFF 250-250-65MG 1 EACH TAB PO PRN ×3 (00:36→15:56)
[2019-11-27] MEDS: PANTOPRAZOLE 40 MG TABLET PO SCH (08:50)
[2019-11-27] MEDS: NICOTINE 14MG/24HR PATCH TRANSDERM SCH (08:50)
[2019-11-27] MEDS: MELOXICAM 7.5 MG TAB PO SCH (08:50)
[2019-11-27] MEDS: MIRTAZAPINE 15 MG TAB PO SCH ×3 (08:51→22:54)
--- NOTE | 2019-11-27 09:34 | PN ---
PROGRESS NOTE DATE OF SERVICE: 11/27/2019 CHIEF COMPLAINT: The patient was brought to the hospital after being found disheveled and disorganized in the park. She was transferred from the medical floor. INTERVAL HISTORY: Patient has been doing fair. She had a quiet day yesterday. She says that she generally will make 1 group a day though she did not make a group yesterday. She was having some foot pain problems. Mostly she stays in her room. She will get out and wander some in the [place]. She does not really interact too much with others. She said it took her a while to fall asleep last night, though she then seemed to get a fair night's sleep. Today she has been up. She has a fair appetite. She says that the nighttime Remeron seems to help calm her down and reduce some of her anxiety. She is requesting to have it given twice a day as she feels she needs something for anxiety. She asked for Ativan though when we reviewed concerns about Ativan in terms of risk for balance problems and falls, memory disturbance, as well as the habit-forming nature of it, she understood that it is not a good medication for her. She says that her foot pain is better today with the addition of meloxicam and Excedrin p.r.n. When I talked with her about housing issues, she was unclear about specifics. She says that she has family in the area and that she anticipates some of her children would visit her and then she would be able to talk about housing, though she was very vague on specifics of this. She did not seem to be expressing much concern about housing, which is perhaps her major issue. She notes that she was evicted in the middle of September and has been living on the streets since then. When I asked her where she sleeps at night she just said "on the street." She tolerates her psychotropic medications. MENTAL STATUS: Patient sat with a little restlessness. She gave fairly good eye contact. She spoke in a soft voice. She spoke somewhat slowly. She answered questions appropriately. Her thoughts were clear. Her affect was constricted. Her mood reserved. She did not appear to be significantly distressed. There was no indication for thought disorder. She voiced no thoughts of harm. Cognition was clear. ASSESSMENT: I will continue the current diagnosis and treatment plan. I will increase Remeron to 15 mg b.i.d. Twice a day dosing is not a standard dose for Remeron, however, the patient seems to feel that it helps calm some of her anxiety and may be a better option than some others such as Ativan which she did request. The major issue will be for her to work with social work to set up housing upon discharge. We will continue to focus on stabilization and discharge planning. MMFLORIDALMAL / IJN: [id number] /
[2019-11-27] MEDS: MULTIVITAMINS, THERA 1 EACH TAB PO SCH (12:45)
[2019-11-27] MEDS: FOLIC ACID 1 MG TAB PO SCH (12:45)
[2019-11-27] MEDS: NICOTINE 7MG/24HR PATCH TRANSDERM SCH (12:46)
[2019-11-27] MEDS: DOCUSATE 100 MG CAP PO PRN (15:54)
[2019-11-27] MEDS: MAG HYDROX/AL HYDROX/SIMETH 30 ML CUP PO PRN (15:54)
[2019-11-27] MEDS: MAGNESIUM HYDROXIDE 2,400 MG/10 ML CUP PO PRN (21:17)
[2019-11-27] MEDS: ACETAMINOPHEN TAB 325 MG TAB PO PRN (23:07)
[2019-11-28] MEDS: PANTOPRAZOLE 40 MG TABLET PO SCH (08:58)
[2019-11-28] MEDS: MELOXICAM 7.5 MG TAB PO SCH (08:58)
[2019-11-28] MEDS: FOLIC ACID 1 MG TAB PO SCH (08:58)
[2019-11-28] MEDS: MULTIVITAMINS, THERA 1 EACH TAB PO SCH (08:59)
[2019-11-28] MEDS: MIRTAZAPINE 15 MG TAB PO SCH (09:01)
[2019-11-28] MEDS: ACETAMINOPHEN TAB 325 MG TAB PO PRN ×3 (09:01→20:56)
[2019-11-28] MEDS: NICOTINE 7MG/24HR PATCH TRANSDERM SCH (09:01)
--- NOTE | 2019-11-28 10:37 | P.PN ---
Progress Note - Text Progress Note Date: 11/28/19 Interval History: Patient was seen wandering the hallways and was directable and agreeable to speak with public relations writer in the office. Patient reports that she is feeling better but continues to have difficulty sleeping. At this time patient denies any suicidal or homical ideations, intent or plan. Patient denies any auditory, visual hallucinations and denies any paranoia or delusions. She appears to be fixated on receiving Elavil as a medication for sleep. This provider discussed with her that the medication places her at increased risk for cardiac events as well as falls and other side effects and the preference would be for Remeron instead. Patient denies any side effects from the medications and has been compliant with meds. When discussing safe discharge planning, patient expresses that she lives on [address] [place] [address]. She continues to state that she will stay with her children upon discharge. She is uncertain about which child at this time. Mental Status Exam: General Appearance: Patient appears to be stated age is alert, directable, and cooperative. Behavior: Patient is calmly seated without any agitated behavior. Speech: Patient's speech is fluent and nonpressured. Mood/Affect: Mood is improving mildly, affect is congruent and constricted. Suicidality/Homicidality: Patient denies having any suicidal or homicidal ideation intent or plan. Perceptions: Patient denies any visual hallucinations and denies any auditory hallucinations Though content/process: There is no evidence of any delusional thought content and thought process is linear and goal-directed. Memory and concentration: AOX3, grossly intact for the purposes of this session Judgment and insight: Improving mildly Assessment Major depressive disorder Psychosis, unspecified Plan: -Patient continues to meet criteria for inpatient psychiatric admission for symptom stabilization and safety. Patient has deferred court. -Medications: Change Remeron to 30 mg by mouth at bedtime to avoid daytime sedation/risk for falls. Add melatonin 3 mg by mouth at bedtime for insomnia. -When necessary Ativan and Geodon for agitation/aggression. -SW on board for discharge planning. Encouraged the patient to participate in milieu.
[2019-11-28] MEDS: DOCUSATE 100 MG CAP PO PRN (15:13)
[2019-11-28] MEDS: MAGNESIUM HYDROXIDE 2,400 MG/10 ML CUP PO PRN (16:45)
[2019-11-28] MEDS: MELATONIN 3 MG TABLET PO SCH (20:55)
[2019-11-28] MEDS ORDERED: MIRTAZAPINE 15 MG TAB PO SCH (21:00)
[2019-11-29] MEDS: ACETAMINOPHEN TAB 325 MG TAB PO PRN ×3 (04:21→20:52)
[2019-11-29 04:48] VITALS: BP 119/80; PULSE 90
[2019-11-29] MEDS: PANTOPRAZOLE 40 MG TABLET PO SCH (08:27)
[2019-11-29] MEDS: MELOXICAM 7.5 MG TAB PO SCH (08:28)
[2019-11-29 08:33] VITALS: TEMP 98.6
[2019-11-29] MEDS: NICOTINE 7MG/24HR PATCH TRANSDERM SCH (08:53)
[2019-11-29] MEDS ORDERED: hydrOXYzine pamoate 25 MG CAP PO PRN (10:32)
--- NOTE | 2019-11-29 10:41 | P.PN ---
Progress Note - Text Progress Note Date: 11/29/19 Interval History: Patient was seen in her bedroom and was directable and agreeable to speak with quality analyst/technical writer in the office. Patient expresses that she has been feeling increasingly anxious and that she is not feeling well. At this time patient denies any suicidal or homical ideations, intent or plan. She reports a strong desire to be placed back on her regimen of Elavil which she states she has been taking 3 times per day. In regards to discharge planning, she continues to report that should be going home with any of her family members. She states that she will inform her therapist and sign a release of information. She is expressing that she has some upper respiratory symptoms at this time and is feeling malaised. Patient denies any auditory, visual hallucinations and denies any paranoia or delusions. She has been adherent with her medications but expresses daytime sedation with the Remeron. She also attributes some nausea with Remeron. She is also been requesting Tylenol 3 or 4 for pain and was informed that this is not something that we would prescribe it while she is admitted in the psychiatric unit. Mental Status Exam: General Appearance: Patient appears to be stated age is alert, directable, and cooperative. Behavior: Patient is calmly seated without any agitated behavior. Speech: Patient's speech is fluent and nonpressured. Mood/Affect: Mood is improving mildly, affect is congruent and constricted. Suicidality/Homicidality: Patient denies having any suicidal or homicidal ideation intent or plan. Perceptions: Patient denies any visual hallucinations and denies any auditory hallucinations Though content/process: There is no evidence of any delusional thought content and thought process is linear and goal-directed. Some fixation on Elavil. Memory and concentration: AOX3, grossly intact for the purposes of this session Judgment and insight: Improving mildly Assessment Major depressive disorder Psychosis, unspecified Anxiety, unspecified Plan: -Patient continues to meet criteria for inpatient psychiatric admission for symp jesus stabilization and safety. Patient deferred court on 11/28/2019. -Medications: Discontinue Remeron. Start Elavil 25 mg by mouth at bedtime for insomnia/anxiety/depression. Continue melatonin 3 mg by mouth at bedtime for insomnia Start hydroxyzine 25 mg by mouth 3 times a day when necessary for anxiety - Risks, benefits, and treatment alternatives of the medications were discussed with the patient in great detail. -When necessary Ativan and Geodon for agitation/aggression. -SW on board for discharge planning. Encouraged the patient to participate in milieu.
[2019-11-29 12:35] VITALS: BMI 20.5
[2019-11-29] MEDS: FOLIC ACID 1 MG TAB PO SCH (13:10)
[2019-11-29] MEDS: MULTIVITAMINS, THERA 1 EACH TAB PO SCH (13:10)
[2019-11-29] MEDS: MELATONIN 3 MG TABLET PO SCH (20:51)
[2019-11-29] MEDS: MAG HYDROX/AL HYDROX/SIMETH 30 ML CUP PO PRN (20:53)
[2019-11-29] MEDS ORDERED: AMITRIPTYLINE HCL 25 MG TAB PO SCH (21:00)
[2019-11-30] MEDS: NICOTINE 7MG/24HR PATCH TRANSDERM SCH (08:29)
[2019-11-30] MEDS: PANTOPRAZOLE 40 MG TABLET PO SCH (08:29)
[2019-11-30] MEDS ORDERED: AMITRIPTYLINE HCL 25 MG TAB PO STA (09:21)
--- NOTE | 2019-11-30 10:39 | P.DS ---
Providers Date of admission: 11/22/19 15:50 Expected date of discharge: 11/30/19 Attending physician: Valdez Prasad MD Consults: 11/22/19 16:44 Consult Physician Routine Consulting Provider: Yumi Prabhakar Consult Reason/Comments: H&P and medical Do you want consulting provider notified?: Yes Primary care physician: Ezequiel Oshea - Discharge Diagnosis(es) (1) Major depressive disorder Current Visit: Yes Status: Acute Priority: High (2) Psychosis Current Visit: Yes Status: Acute Priority: Medium (3) Generalized anxiety disorder Current Visit: Yes Status: Acute Priority: Medium (4) Tobacco use Current Visit: Yes Status: Chronic Priority: Medium Hospital Course: Admission HPI: Patient is a 64-year-old, female, with significant history of DVT, vertigo, anxiety, depression, who was brought to the hospital on 11/19/2019 after [place] disheveled and disorganized [place] the [place] by police where she was also covered with urine and feces. Patient presented to the hospital on 11/19/2019. Patient was a poor historian upon initial evaluation on the hospital floor. She was admitted for management of altered mental status and started on empiric antibiotics for urinary tract infection. Upon review of the EPS assessment, the patient would only speak with the EPS RN at her doorway. The patient was refusing medications. Dr. June noted that the patient was irritable and delusional. Patient reports that for the last few weeks she has "not doing well." She states that she has been completely fatigued. She also reports that she has been "suicidal lately but not now." She does not endorse any auditory or visual hallucinations. But she does report some paranoia and "not feeling safe." She is unable to elaborate any further information and terminated the interview. Hospital course: Upon admission to the unit patient was initially disorganized and uncooperative. Patient was however directable and agreeable to commence treatment. Patient got along well with other patients on the unit and followed unit protocol. Patient was compliant with the medications and denied any side effects throughout hospital course. Patient was started on Remeron 15 mg by mouth at bedtime to help with depression, appetite, and insomnia. Patient spoke of her stressors and engaged in therapy both group and individual. Patient was also seen by medical team for history and physical exam. Patient reported that Remeron was not feeling well with her and that she preferred to be back on her previously prescribed Elavil. She was also asking for Ativan which this provider educated her that Ativan would be inappropriate to use in the geriatric population. Throughout the course of the hospitalization patient gradually improved with regards to mood, anxiety, and sleep and became future oriented with improved insight and judgment. Patient is currently homeless. The treatment team has tried to obtain any collateral information to determine any place for safe discharge. After attempting multiple phone numbers and receiving no results, the decision to discharge the patient to a senior living has been made. On the day of discharge patient denied any suicidal or homicidal ideations intent or plan denied any auditory or visual hallucinations. Patient endorsed wanting to live for her health and her family members. She states she would go to [facility] to check on her mother who she states has been admitted to the ICU there. Her family was eventually contacted as there have been looking for her for the past 3 weeks. They were made aware of where she will be going. The patient denied any access to guns or weapons. Patient denied any paranoia and did not endorse any delusions. Patient does not have a significant history of substance abuse however was counseled on abstaining from all substances including alcohol and marijuana. Patient was also counseled on the medications and need for regular compliance and was encouraged to follow-up with their outpatient appointment for mental health and also for primary care. Mental status exam: General Appearance: Patient appears to be stated age is alert, pleasant, and cooperative. Patient is in no acute distress and has fair hygiene and grooming Behavior: Patient is calmly seated without any agitated behavior. Speech: Patient's speech is fluent and nonpressured. Mood/Affect: Patient reports their mood is "much better", affect is congruent and euthymic. Suicidality/Homicidality: Patient denies having any suicidal or homicidal ideation intent or plan. Perceptions: Patient denies any auditory or visual hallucinations. Though content/process: There is no evidence of any delusional thought content and thought process is linear and goal-directed. more future oriented Memory and concentration: AOX3, grossly intact for the purposes of this session. Can spell "WORLD" backwards correctly. Judgment and insight: Improved with guarded prognosis Impression: Psychosis, unspecified Major depressive disorder Generalized anxiety disorder Tobacco Use disorder Plan: -Continue with discharge today as patient has improved and stabilized psychiatrically and is not currently an imminent threat to herself and/or others. Patient will remain at chronically elevated risk for harm to self and/or others due to her homelessness. She will be discharged to a senior living. Her family is made aware of her location. -Continue medications: Elavil 25 mg by mouth twice a day for depression/anxiety Melatonin 3 mg by mouth at bedtime for insomnia Nicotine patch for smoking cessation -Patient was counseled on the need for medication compliance and appropriate follow-up at mental health and also primary care for medical issues. Patient verbalized understanding and agreed. -Social work to arrange for and conduct family meeting to ensure safety upon discharge and answer any questions/concerns. Social work also to arrange for patients follow up appointments with [facility] for psychiatric care along with follow up with primary care provider. -Patient counseled on abstaining from recreational drugs and marijuana and alcohol. Was informed/educated on the adverse effects on their physical and mental health. Patient verbally agreed and understood. -Patient was instructed to return to the hospital or seek immediate medical care if their psychiatric or medical symptoms do worsen or reoccur. -Psychoeducation and supportive therapy provided to patient. Risks and benefits of pharmacological treatment versus the risks and benefits of nontreatment weight and discussed. Informed consent discussion held. Common side effects of psychotropics discussed such as, but not limited to headache, GI disturbance, sexual dysfunction, movement disorders, sedation, and orthostatic hypotension. Life threatening and blackbox warnings of prescribed medications also discussed. Potential risks of operating a vehicle or heavy machinery discussed with patient at length. Advised on importance of compliance and a reliable and responsible manner. Patient advised to review FDA consumer labeling of all medications prior to taking. Patient verbalized understanding of potential risks, and agrees with current treatment plan. Patient advised to medically contact physician/emergency personnel if any acute changes in condition occur. Vital Signs Temp 98.6 F 11/29/19 08:33 Pulse 90 11/29/19 04:47 Resp 16 11/29/19 04:47 BP 119/80 11/29/19 04:47 Pulse Ox 98 11/29/19 04:47 Intake & Output 11/29/19 11/30/19 11/30/19 18:59 06:59 18:59 Weight 50.8 kg Laboratory Results Estimated [address] Glu mg/dL 134 11/20/19 05:51 Hemoglobin A1c 6.3 % (4.0-6.0) H 11/20/19 05:51 Troponin I <0.012 ng/mL (0.000-0.034) 11/26/19 19:12 Triglycerides 124 mg/dL (<150) 11/20/19 05:51 Cholesterol 159 mg/dL (<200) 11/20/19 05:51 LDL Cholesterol, Calc 67 mg/dL (0-99) 11/20/19 05:51 HDL Cholesterol 67 mg/dL (40-60) H 11/20/19 05:51 TSH 0.472 mIU/L (0.465-4.680) 11/20/19 05:51 Allergies Allergy/AdvReac Type Severity Reaction Status Date / Time Penicillins Allergy Unknown Verified 11/19/19 15:37 latex AdvReac Rash/Hives Verified 11/19/19 15:37 Patient Condition at Discharge: Stable Plan - Discharge Summary Discharge Rx Participant: No New Discharge Prescriptions: New RX: Docusate [Colace] 100 mg PO BID PRN 30 Days cap PRN Reason: Constipation RX: Amitriptyline HCl [Elavil] 25 mg PO BID 30 Days tab RX: Nicotine 7Mg/24Hr Patch [Habitrol] 1 patch TRANSDERM DAILY 30 Days patch RX: Melatonin 3 mg PO HS 30 Days tablet RX: Pantoprazole [Protonix] 40 mg PO AC-BRKFST 30 Days tablet.dr RX: hydrOXYzine pamoate [Vistaril] 25 mg PO Q8HR PRN 30 Days cap PRN Reason: Anxiety Continue RX: Ergocalciferol (Vitamin D2) [Drisdol] 50,000 unit PO Q14D RX: Rosuvastatin Calcium 5 mg PO HS RX: Folic Acid 1 mg PO DAILY@1200 30 Days tab RX: Ferrous Sulfate [Iron (65 MG Elemental)] 325 mg PO BID PRN 30 Days tab PRN Reason: LOW IRON RX: Multivitamins, Thera [Multivitamin (formulary)] 1 each PO DAILY@1200 30 Days tab RX: Albuterol Sulfate [Ventolin HFA] 2 puff INHALATION RT-Q6H PRN 30 Days inhaler PRN Reason: Shortness Of Breath Discontinued RX: LORazepam [Ativan] 1 mg PO Q8H PRN PRN Reason: Anxiety RX: Amitriptyline HCl [Elavil] 25 - 50 mg PO TID MDD 6/DAY RX: Acetaminophen with Codeine [Tylenol with Codeine #4 Tablet] 1 tab PO Q6H PRN PRN Reason: Pain RX: Docusate [Colace] 100 mg PO BID PRN PRN Reason: Constipation Cefuroxime Axetil [Ceftin] 500 mg PO BID 3 Days #6 tab RX: Pantoprazole [Protonix] 40 mg PO AC-BRKFST #0 tablet. Discharge Medication List RX: Ergocalciferol (Vitamin D2) [Drisdol] 50,000 unit PO Q14D 11/19/19 [History] RX: Rosuvastatin Calcium 5 mg PO HS 11/19/19 [History] RX: Albuterol Sulfate [Ventolin HFA] 2 puff INHALATION RT-Q6H PRN 30 Days inhaler 11/30/19 [Rx] RX: Amitriptyline HCl [Elavil] 25 mg PO BID 30 Days tab 11/30/19 [Rx] RX: Docusate [Colace] 100 mg PO BID PRN 30 Days cap 11/30/19 [Rx] RX: Ferrous Sulfate [Iron (65 MG Elemental)] 325 mg PO BID PRN 30 Days tab 11/30/19 [Rx] RX: Folic Acid 1 mg PO DAILY@1200 30 Days tab 11/30/19 [Rx] RX: Melatonin 3 mg PO HS 30 Days tablet 11/30/19 [Rx] RX: Multivitamins, Thera [Multivitamin (formulary)] 1 each PO DAILY@1200 30 Days tab 11/30/19 [Rx] RX: Nicotine 7Mg/24Hr Patch [Habitrol] 1 patch TRANSDERM DAILY 30 Days patch 11/30/19 [Rx] RX: Pantoprazole [Protonix] 40 mg PO AC-BRKFST 30 Days tablet. 11/30/19 [Rx] RX: hydrOXYzine pamoate [Vistaril] 25 mg PO Q8HR PRN 30 Days cap 11/30/19 [Rx] Follow up Appointment(s)/Referral(s): [facility] [Outside] - 12/02/19 11:00 am ( 12/02/19 at 11 am with Joy Cook over the phone) Activity/Diet/Wound Care/Special Instructions: Activity and diet as tolerated. Avoid the use of street drugs and alcohol. Take all medications as prescribed. When you are in need of refills on your medications please contact your medical provider and/or outpatient psychiatrist to have this done. Please go to scheduled outpatient appointment for aftercare treatment. If symptoms return or become worse, call the crisis line at and/or go to the nearest emergency room for evaluation. Discharge Disposition: OTHER INSTITUTION NOT DEFINED
[2019-11-30] MEDS: MULTIVITAMINS, THERA 1 EACH TAB PO SCH (12:30)
[2019-11-30] MEDS: FOLIC ACID 1 MG TAB PO SCH (12:30)
[2019-11-30] MEDS ORDERED: AMITRIPTYLINE HCL 25 MG TAB PO SCH (21:00)
== END 2019-11-30 14:28 | disposition short-term general hospital (02) | DRG 885 ==
LOC: 3MHU 15:50
PROVIDERS: ADMIT Psychiatry & Neurology Psychiatry; ATTEND Psychiatry & Neurology Psychiatry
DX: F29 Unspecified psychosis not due to a substance or known physiological condition (principal); A41.9 Sepsis, unspecified organism; M62.82 Rhabdomyolysis; N39.0 Urinary tract infection, site not specified; F17.210 Nicotine dependence, cigarettes, uncomplicated; F32.9 Major depressive disorder, single episode, unspecified; F20.9 Schizophrenia, unspecified; F41.1 Generalized anxiety disorder; G47.00 Insomnia, unspecified; G89.29 Other chronic pain; M54.2 Cervicalgia; M54.9 Dorsalgia, unspecified; H40.9 Unspecified glaucoma; Z59.0 Homelessness; Z79.899 Other long term (current) drug therapy; Z82.49 Family history of ischemic heart disease and other diseases of the circulatory system; Z86.718 Personal history of other venous thrombosis and embolism; Z90.49 Acquired absence of other specified parts of digestive tract; Z91.19 Patient's noncompliance with other medical treatment and regimen; R94.6 Abnormal results of thyroid function studies; R42 Dizziness and giddiness; Z88.0 Allergy status to penicillin; Z91.040 Latex allergy status
CPT/HCPCS: 80061; 83036; 84443; 84484; 93005

== ENCOUNTER 2019-11-30 18:54 | Emergency (ER) | payer MEDICARE, OTHER ==
[2019-11-30 19:56] VITALS: BP 138/74; PULSE 84; RESP 20; TEMP 98.6
== END 2019-11-30 20:23 ==
LOC: EC 18:54
DX: R07.9 Chest pain, unspecified (principal)
CPT/HCPCS: 99499

== ENCOUNTER 2019-11-30 20:52 | Observation (INO) | payer MEDICARE, OTHER ==
[2019-11-30 21:54] LABS: Basophils # (A) 0.1 k/uL (0-0.2); Basophils % (A) 1 %; Eosinophils # (A) 0.1 k/uL (0-0.7); Eosinophils % (A) 1 %; HCT 43.2 % (34.0-46.0); HGB 14.4 gm/dL (11.4-16.0); Lymphocytes # (A) 3.2 k/uL (1.0-4.8); Lymphocytes % (A) 31 %; MCH 32.7 pg (25.0-35.0); MCHC 33.4 g/dL (31.0-37.0); Mean Platelet Volume 8.1; Monocytes # (A) 0.6 k/uL (0-1.0); Monocytes % (A) 6 %; Neutrophils % (A) 59 %; Platelet Count 280 k/uL (150-450); RBC 4.41 m/uL (3.80-5.40); RDW 13.4 % (11.5-15.5); WBC 10.2 k/uL (3.8-10.6)
[2019-11-30 22:06] LABS: ALT 43 U/L (4-34); AST 44 U/L (14-36); African American GFR (CKD) >90 (>60 ml/min/1.73 sqM); Albumin 4.7 g/dL (3.5-5.0); Alkaline Phosphatase 59 U/L (38-126); Anion Gap 6 mmol/L; Blood Urea Nitrogen 17 mg/dL (7-17); Calcium 9.9 mg/dL (8.4-10.2); Carbon Dioxide 27 mmol/L (22-30); Chloride 106 mmol/L (98-107); Glucose 111 mg/dL (74-99); Magnesium 2.4 mg/dL (1.6-2.3); Non-African American GFR(CKD) >90 (>60 ml/min/1.73 sqM); Potassium 4.2 mmol/L (3.5-5.1); Sodium 139 mmol/L (137-145); Total Bilirubin 0.5 mg/dL (0.2-1.3); Total Protein 7.6 g/dL (6.3-8.2)
--- NOTE | 2019-11-30 22:06 | XR ---
EXAMINATION TYPE: XR chest 2V DATE OF EXAM: 11/30/2019 COMPARISON: 03/18/2019 HISTORY: Chest pain TECHNIQUE: FINDINGS: Heart and mediastinum are within normal limits. Lungs are clear of infiltrate. There is no heart failure. There are no hilar masses. There are chest leads. Costophrenic angles are clear. Bony thorax is intact. IMPRESSION: No active cardiopulmonary disease. No change.
[2019-11-30 22:09] LABS: INR 0.9 (<1.2); Partial Thromboplastin Time 22.4 sec (22.0-30.0); Prothrombin Time 9.4 sec (9.0-12.0)
[2019-11-30] MEDS ORDERED: ASPIRIN 81 MG PO STA (22:45)
--- NOTE | 2019-11-30 22:45 | ED ---
General Adult HPI - General Chief complaint: Chest Pain Stated complaint: Chest Pain Time Seen by Provider: 11/30/19 21:15 Source: patient, RN notes reviewed Mode of arrival: wheelchair Limitations: no limitations - History of Present Illness Initial comments: 64-year-old female with a past medical history of CAD, DVT, cholecystectomy, depression, anxiety, psychosis presents to the emergency room for a chief complaint of chest pain. Patient reports that he has had chest pain on and off for the past 3 hours. Patient denies shortness of breath. Denies nausea. Reports she does have a cardiac history. She does have a history of smoking. Patient has no other complaints at this time including shortness of breath, abdominal pain, nausea or vomiting, headache, or visual changes. - Related Data Home Medications Medication Instructions Recorded Confirmed Ergocalciferol (Vitamin D2) 50,000 unit PO Q14D 11/19/19 11/22/19 [Drisdol] Rosuvastatin Calcium 5 mg PO HS 11/19/19 11/22/19 Previous Rx's Medication Instructions Recorded Albuterol Sulfate [Ventolin HFA] 2 puff INHALATION RT-Q6H PRN 30 11/30/19 Days inhaler Amitriptyline HCl [Elavil] 25 mg PO BID 30 Days tab 11/30/19 Docusate [Colace] 100 mg PO BID PRN 30 Days cap 11/30/19 Ferrous Sulfate [Iron (65 MG 325 mg PO BID PRN 30 Days tab 11/30/19 Elemental)] Folic Acid 1 mg PO DAILY@1200 30 Days tab 11/30/19 Melatonin 3 mg PO HS 30 Days tablet 11/30/19 Multivitamins, Thera [Multivitamin 1 each PO DAILY@1200 30 Days tab 11/30/19 (formulary)] Nicotine 7Mg/24Hr Patch [Habitrol] 1 patch TRANSDERM DAILY 30 Days 11/30/19 patch Pantoprazole [Protonix] 40 mg PO AC-BRKFST 30 Days 11/30/19 tablet hydrOXYzine pamoate [Vistaril] 25 mg PO Q8HR PRN 30 Days cap 11/30/19 Allergies Allergy/AdvReac Type Severity Reaction Status Date / Time Penicillins Allergy Unknown Verified 11/30/19 21:12 latex AdvReac Rash/Hives Verified 11/30/19 21:12 Review of Systems ROS Statement: Those systems with pertinent positive or pertinent negative responses have been documented in the HPI. ROS Other: All systems not noted in ROS Statement are negative. Past Medical History Past Medical History: Coronary Artery Disease (CAD), Deep Vein Thrombosis (DVT) Additional Past Medical History / Comment(s): blood clot in stomach, chronic neck pain, chronic joint pain, glaucoma, shoulder fx in three places, tore ligaments in bilateral knees, broke bilateral ankles and tore ligaments in both knees, vertigo, possible early onset dementia; bulging disc. History of Any Multi-Drug Resistant Organisms: None Reported Past Surgical History: Section, Cholecystectomy Additional Past Surgical History / Comment(s): c-sectionx4 Past Anesthesia/Blood Transfusion Reactions: No Reported Reaction Additional Past Anesthesia/Blood Transfusion Reaction / Comment(s): pt is poor historian; states she recieved 4 units of blood 45 years ago and was exposed to hepatitis A, B and C Past Psychological History: Anxiety, Depression Smoking Status: Former smoker Past Alcohol Use History: None Reported Past Drug Use History: None Reported, Marijuana - Past Family History Father Additional Family Medical History / Comment(s): no history Brother(s) Family Medical History: Myocardial Infarction ([place]) Mother Additional Family Medical History / Comment(s): dementia General Exam Limitations: no limitations General appearance: alert, in no apparent distress Head exam: Present: atraumatic, normocephalic, normal inspection Eye exam: Present: normal appearance, PERRL, EOMI. Absent: scleral icterus, conjunctival injection, periorbital swelling ENT exam: Present: normal exam, mucous membranes moist Neck exam: Present: normal inspection, full ROM. Absent: tenderness, meningismus, lymphadenopathy Respiratory exam: Present: normal lung sounds bilaterally. Absent: respiratory distress, wheezes, rales, rhonchi, stridor Cardiovascular Exam: Present: regular rate, normal rhythm, normal heart sounds. Absent: systolic murmur, diastolic murmur, rubs, gallop, clicks GI/Abdominal exam: Present: soft, normal bowel sounds. Absent: distended, tenderness, guarding, rebound, rigid Neurological exam: Present: alert Course Vital Signs 11/30/19 21:10 Temperature 99.1 F Pulse Rate 82 Respiratory 20 Rate Blood Pressure 138/80 O2 Sat by Pulse 99 Oximetry Medical Decision Making - Medical Decision Making Vitals are stable. CBC CMP unremarkable. Troponin is negative. EKG shows a normal sinus rhythm. However given cardiac history in that fact that symptoms only been going on for 2 hours patient will be admitted for cardiology consultation. Psychiatric consultation will also be added given patient was recently released from [facility]. - Lab Data Result diagrams: 11/30/19 21:36 11/30/19 21:36 Lab Results 11/30/19 11/30/19 11/30/19 Range/Units 21:36 21:36 21:36 WBC 10.2 (3.8-10.6) k/uL RBC 4.41 (3.80-5.40) m/uL Hgb 14.4 (11.4-16.0) gm/dL Hct 43.2 (34.0-46.0) % MCV 98.0 (80.0-100.0) fL MCH 32.7 (25.0-35.0) pg MCHC 33.4 (31.0-37.0) g/dL RDW 13.4 (11.5-15.5) % Plt Count 280 (150-450) k/uL Neutrophils % 59 % Lymphocytes % 31 % Monocytes % 6 % Eosinophils % 1 % Basophils % 1 % Neutrophils # 6.0 (1.3-7.7) k/uL Lymphocytes # 3.2 (1.0-4.8) k/uL Monocytes # 0.6 (0-1.0) k/uL Eosinophils # 0.1 (0-0.7) k/uL Basophils # 0.1 (0-0.2) k/uL PT 9.4 (9.0-12.0) sec INR 0.9 (<1.2) APTT 22.4 (22.0-30.0) sec Sodium 139 (137-145) mmol/L Potassium 4.2 (3.5-5.1) mmol/L Chloride 106 (98-107) mmol/L Carbon Dioxide 27 (22-30) mmol/L Anion Gap 6 mmol/L BUN 17 (7-17) mg/dL Creatinine 0.57 (0.52-1.04) mg/dL Est GFR (CKD-EPI)AfAm >90 (>60 ml/min/1.73 sqM) Est GFR (CKD-EPI)NonAf >90 (>60 ml/min/1.73 sqM) Glucose 111 H (74-99) mg/dL Calcium 9.9 (8.4-10.2) mg/dL Magnesium 2.4 H (1.6-2.3) mg/dL Total Bilirubin 0.5 (0.2-1.3) mg/dL AST 44 H (14-36) U/L ALT 43 H (4-34) U/L Alkaline Phosphatase 59 (38-126) U/L Troponin I (0.000-0.034) ng/mL NT-Pro-B Natriuret Pep pg/mL Total Protein 7.6 (6.3-8.2) g/dL Albumin 4.7 (3.5-5.0) g/dL 11/30/19 11/30/19 Range/Units 21:36 21:36 WBC (3.8-10.6) k/uL RBC (3.80-5.40) m/uL Hgb (11.4-16.0) gm/dL Hct (34.0-46.0) % MCV (80.0-100.0) fL MCH (25.0-35.0) pg MCHC (31.0-37.0) g/dL RDW (11.5-15.5) % Plt Count (150-450) k/uL Neutrophils % % Lymphocytes % % Monocytes % % Eosinophils % % Basophils % % Neutrophils # (1.3-7.7) k/uL Lymphocytes # (1.0-4.8) k/uL Monocytes # (0-1.0) k/uL Eosinophils # (0-0.7) k/uL Basophils # (0-0.2) k/uL PT (9.0-12.0) sec INR (<1.2) APTT (22.0-30.0) sec Sodium (137-145) mmol/L Potassium (3.5-5.1) mmol/L Chloride (98-107) mmol/L Carbon Dioxide (22-30) mmol/L Anion Gap mmol/L BUN (7-17) mg/dL Creatinine (0.52-1.04) mg/dL Est GFR (CKD-EPI)AfAm (>60 ml/min/1.73 sqM) Est GFR (CKD-EPI)NonAf (>60 ml/min/1.73 sqM) Glucose (74-99) mg/dL Calcium (8.4-10.2) mg/dL Magnesium (1.6-2.3) mg/dL Total Bilirubin (0.2-1.3) mg/dL AST (14-36) U/L ALT (4-34) U/L Alkaline Phosphatase (38-126) U/L Troponin I <0.012 (0.000-0.034) ng/mL NT-Pro-B Natriuret Pep 165 pg/mL Total Protein (6.3-8.2) g/dL Albumin (3.5-5.0) g/dL Disposition Clinical Impression: Chest pain Disposition: ADMITTED IP TO THIS HOSP Condition: Fair Is patient prescribed a controlled substance at d/c from ED?: No Referrals: Ezequiel Oshea III, MD [Primary Care Provider] - 1-2 days Time of Disposition: 22:44
[2019-12-01 04:53] VITALS: BP 115/62; PULSE 64; RESP 18; TEMP 98.4
[2019-12-01 05:35] LABS: Cholesterol 202 mg/dL (<200); HDL Cholesterol 67 mg/dL (40-60); LDL Cholesterol,Calculated 111 mg/dL (0-99); Triglycerides 121 mg/dL (<150)
[2019-12-01] MEDS ORDERED: FERROUS SULFATE 325 MG TAB PO PRN (07:58)
[2019-12-01] MEDS ORDERED: DOCUSATE 100 MG CAP PO PRN (07:58)
[2019-12-01] MEDS ORDERED: ALBUTEROL NEBULIZED 2.5 MG/3 ML INHALATION PRN (07:58)
--- NOTE | 2019-12-01 08:47 | P.HPIM ---
History of Present Illness 64-year-old female came in with complaints of chest pain on the left side of the chest 6/10 in severity burning sensation no assistive nausea or diaphoresis. Patient leaves she may have had blurry vision at the time which lasted for few minutes on and off. Patient denied any chest pain presently patient denied any diaphoresis. I do not have an EKG available as patient declined to get an EKG. Patient was found wandering in the parking lot and was brought in here as she complained of chest pain when she was wandering the parking lot by security. Patient had history of DVT in the past patient agreed to get an EKG which is c ompletely artifact and she declined any more EKGs after that patient had 3 sets of troponins which are negative. Patient does have history of for psychiatric issues had admissions to second floor in the past. Patient denied any fever chills cough. Patient the chest pain is nonpleuritic not associated with food. Review of Systems REVIEW OF SYSTEMS: CONSTITUTIONAL: No fever, no malaise, no fatigue. HEENT: No recent visual problems or hearing problems. Denied any sore throat. CARDIOVASCULAR: No orthopnea, PND, no palpitations, no syncope. PULMONARY: No shortness of breath, no cough, no hemoptysis. GASTROINTESTINAL: No diarrhea, no nausea, no vomiting, no abdominal pain. NEUROLOGICAL: No headaches, no weakness, no numbness. HEMATOLOGICAL: Denies any bleeding or petechiae. GENITOURINARY: Denies any burning micturition, frequency, or urgency. MUSCULOSKELETAL/RHEUMATOLOGICAL: Denies any joint pain, swelling, or any muscle pain. ENDOCRINE: Denies any polyuria or polydipsia. The rest of the 14-point review of systems is negative. Past Medical History Past Medical History: Coronary Artery Disease (CAD), Deep Vein Thrombosis (DVT) Additional Past Medical History / Comment(s): blood clot in stomach, chronic neck pain, chronic joint pain, glaucoma, shoulder fx in three places, tore ligaments in bilateral knees, broke bilateral ankles and tore ligaments in both knees, vertigo, possible early onset dementia; bulging disc. History of Any Multi-Drug Resistant Organisms: None Reported Past Surgical History: Section, Cholecystectomy Additional Past Surgical History / Comment(s): c-sectionx4 Past Anesthesia/Blood Transfusion Reactions: No Reported Reaction Additional Past Anesthesia/Blood Transfusion Reaction / Comment(s): pt is poor historian; states she recieved 4 units of blood 45 years ago and was exposed to hepatitis A, B and C Past Psychological History: Anxiety, Depression Smoking Status: Former smoker Past Alcohol Use History: None Reported Past Drug Use History: None Reported, Marijuana Additional Drug Use History / Comment(s): Pt denies use of alcohol, marijuana, and other illicit substances even thougth the record indicates otherwise. When asked about the discrepancy, pt states "they don't know what they are talking about." Pt states marijuana use. - Past Family History Father Additional Family Medical History / Comment(s): no history Brother(s) Family Medical History: Myocardial Infarction ([place]) Mother Additional Family Medical History / Comment(s): dementia Medications and Allergies Home Medications Medication Instructions Recorded Confirmed Type Ergocalciferol (Vitamin D2) 50,000 unit PO Q14D 11/19/19 11/30/19 History [Drisdol] Rosuvastatin Calcium 5 mg PO HS 11/19/19 11/30/19 History Albuterol Sulfate [Ventolin HFA] 2 puff INHALATION RT-Q6H PRN 30 11/30/19 11/30/19 Rx Days inhaler Amitriptyline HCl [Elavil] 25 mg PO BID 30 Days tab 11/30/19 11/30/19 Rx Docusate [Colace] 100 mg PO BID PRN 30 Days cap 11/30/19 11/30/19 Rx Ferrous Sulfate [Iron (65 MG 325 mg PO BID PRN 30 Days tab 11/30/19 11/30/19 Rx Elemental)] Folic Acid 1 mg PO DAILY 11/30/19 11/30/19 History Melatonin 3 mg PO HS 30 Days tablet 11/30/19 11/30/19 Rx Multivitamins, Thera [Multivitamin 1 tab PO DAILY 11/30/19 11/30/19 History (formulary)] Nicotine 7Mg/24Hr Patch [Habitrol] 1 patch TRANSDERM DAILY 30 Days 11/30/19 11/30/19 Rx patch Pantoprazole [Protonix] 40 mg PO AC-BRKFST 30 Days 11/30/19 11/30/19 Rx tablet. hydrOXYzine pamoate [Vistaril] 25 mg PO Q8HR PRN 30 Days cap 11/30/19 11/30/19 Rx Famotidine [Pepcid] 20 mg PO BID #30 tab 12/01/19 Rx Allergies Allergy/AdvReac Type Severity Reaction Status Date / Time Penicillins Allergy Unknown Verified 11/30/19 21:12 latex AdvReac Rash/Hives Verified 11/30/19 21:12 Physical Exam Vitals: Vital Signs Temp Pulse Pulse Resp BP BP Pulse Ox 12/01/19 04:51 98.4 F 64 18 115/62 98 12/01/19 02:41 97.9 F 73 16 113/53 98 12/01/19 02:09 98.7 F 79 19 110/58 99 12/01/19 01:00 98.9 F 76 18 105/64 99 11/30/19 21:10 99.1 F 82 20 138/80 99 Intake and Output 11/30/19 12/01/19 12/01/19 22:59 06:59 14:59 Other: Weight 51.029 kg 48.6 kg PHYSICAL EXAMINATION: GENERAL: The patient is alert and oriented x3, not in any acute distress. Well developed, well nourished. HEENT: Pupils are round and equally reacting to light. EOMI. No scleral icterus. No conjunctival pallor. Normocephalic, atraumatic. No pharyngeal erythema. No thyromegaly. CARDIOVASCULAR: S1 and S2 present. No murmurs, rubs, or gallops. PULMONARY: Chest is clear to auscultation, no wheezing or crackles. ABDOMEN: Soft, nontender, nondistended, normoactive bowel sounds. No palpable organomegaly. MUSCULOSKELETAL: No joint swelling or deformity. EXTREMITIES: No cyanosis, clubbing, or pedal edema. NEUROLOGICAL: Gross neurological examination did not reveal any focal deficits. SKIN: No rashes. Results CBC & Chem 7: 11/30/19 21:36 11/30/19 21:36 Labs: Abnormal Lab Results - Last 24 Hours (Table) 11/30/19 12/01/19 Range/Units 21:36 04:41 Glucose 111 H (74-99) mg/dL Magnesium 2.4 H (1.6-2.3) mg/dL AST 44 H (14-36) U/L ALT 43 H (4-34) U/L Cholesterol 202 H (<200) mg/dL LDL Cholesterol, Calc 111 H (0-99) mg/dL HDL Cholesterol 67 H (40-60) mg/dL Thrombosis Risk Factor Assmnt - Choose All That Apply Any of the Below Risk Factors Present?: No Other Risk Factors: Yes Each Risk Factor Represents 2 Points: Age 61-74 years Other congenital or acquired thrombophilia - If yes, enter type in comment: No Thrombosis Risk Factor Assessment Total Risk Factor Score: 2 Thrombosis Risk Factor Assessment Level: Low Risk Assessment and Plan Plan: -Chest pain atypical cardiology will evaluate the patient I believe patient can make her own decision's with the psychiatric will evaluate regarding this. She and is oriented 3 and able to give a good history. If cleared by cardiology and psychiatry patient will be discharged today. Etiology of her chest pain is unclear. -History of DVT many years ago presently not on any anti-correlation -Depression, maybe bipolar -hyperlipidemia -Mild loss was elevation of her liver enzymes no further intervention no further testing is necessary Further workup as per cardiology and if they cleared her for discharge patient will be discharged today
[2019-12-01] MEDS ORDERED: NICOTINE 7MG/24HR PATCH TRANSDERM SCH (09:00)
[2019-12-01] MEDS ORDERED: ASPIRIN 325 MG TAB PO SCH (09:00)
[2019-12-01] MEDS ORDERED: AMITRIPTYLINE HCL 25 MG TAB PO SCH (09:00)
[2019-12-01] MEDS ORDERED: FAMOTIDINE 20 MG TAB PO SCH (09:00)
[2019-12-01] MEDS ORDERED: FOLIC ACID 1 MG TAB PO SCH (09:00)
[2019-12-01] MEDS ORDERED: ENOXAPARIN 40 MG/0.4 ML SYRINGE SQ SCH (09:00)
--- NOTE | 2019-12-01 12:07 | P.CN ---
Psychiatric Consult - . Consult date: 12/01/19 Consult:: IDENTIFYING DATA: This patient is a 64-year-old homeless female with a significant history of depressionwho presented to the hospital with chief complaint of chest pain. HISTORY OF PRESENT ILLNESS: The patient presented to the hospital on 11/30/2019 expressing chest pain. in the emergency department she is described as chest pain as "on and off." While on the hospital floor, the patient has been noted to be refusing medications, EKG, and diagnostic blood work. For that she has not been refusing any intervention or evaluation but rather "delaying." Patient states that she is doing this because she has had intermittent headache and some chest pain and did not feel comfortable at the time. Patient does express that if she was to refuse any evaluation and treatment of chest pain she risks serious morbidity and mortality. At this time, the patient does not endorse any suicidal or homicidal ideations, intentions, and/or plan. She denies any auditory or visual hallucinations. She denies any paranoia. She denies drug use at this time. She expresses inconsistent histories and reports she did not sign out AMA from the ED but was going to the restroom instead. She states she is agreeable to diagnostic work up for chest pain at this time. PAST PSYCHIATRIC HISTORY: Patient states that she follows outpatient care with [facility] with her last appointment on 09/19/2019. She has been diagnosed with major depressive disorder and generalized anxiety disorder. She was recently discharged from [facility] on 11/30/2019 after being admitted for altered mental status. PAST MEDICAL HISTORY: Coronary Artery Disease (CAD), Deep Vein Thrombosis (DVT). ALLERGIES: as per EMR. CHEMICAL DEPENDENCY HISTORY: as per HPI. FAMILY PSYCHIATRIC/SUBSTANCE USE HISTORY: denies SOCIAL HISTORY: Patient is currently homeless. Her mother is still alive and is reported to be in the ICU at [facility]. MENTAL STATUS EXAM: General Appearance: Patient appears to be stated age is alert, pleasant, and intermittently cooperative. Patient appears to have fair hygiene and grooming wearing hospital gown with fair eye contact. Behavior: Patient is calmly lying in bed without any agitated behavior. Speech: Patient's speech is fluent and nonpressured. Mood/Affect: Patient reports their mood is "fine", affect is congruent and euthymic. Suicidality/Homicidality: Patient denies having any suicidal or homicidal ideation intent or plan. Perceptions: Patient denies any visual hallucinations and denies any auditory hallucinations Though content/process: There is no evidence of any delusional thought content and thought process is linear and goal-directed. Memory and concentration: AOX4, grossly intact for the purposes of this session. Can spell "WORLD" backwards Judgment and insight: Fair IMPRESSIONS: Major Depressive Disorder Suspect factitious disorder versus malingering. PLAN: -Patient is recently homeless. She was recently discharged from [facility] in stable condition. She is alert and oriented in all spheres. She was to be discharged to a group home. -At this time patient DOES NOT meet criteria for inpatient psychiatric admission. -Patient DOES have decision making capacity at this time and is able to reason through and communicate/appreciate the risks, benefits and alternatives to treatment. -Delirium precautions recommended with patient including - avoiding use of narcotics and [employer] sedatives, limit anticholinergic medications when possible, frequent re-orientation, minimize use of restraints, open window shades during the day and close them at night -Would recommend the following medication changes/additions: Patient may continue her elavil 25 mg BID and her melatonin 3 mg po HS for depression and insomnia. -Psychiatry will sign off at this point, please contact with any questions. 12/01/19 12:00 12/01/19 12:14
--- NOTE | 2019-12-01 14:17 | P.CRDCN ---
History of Present Illness Consult date: 12/01/19 History of present illness: CHIEF COMPLAINT: Chest pain HISTORY OF PRESENT ILLNESS: This is a 64-year old female with a past medical history significant for DVT, anxiety, and depression. Patient follows in the office with Dr. Whitlock. We have been asked to see the patient in consultation for chest pain. Apparently the patient was being evaluated in the emergency room for chest pain and then left AMA and then was found by security wandering in the parking lot and was brought back to the emergency room. Patient initially refused to speak with myself this morning and requested that I leave her room. She is refusing to have any testing completed including an EKG. Dr. Osman examined the patient later in the morning and she was agreeable to answer some questions. She currently denies chest pain. She states that she has been having some intermittent chest pain that is worse with anxiety. She denies shortness of breath. Denies any diaphoresis. Denies nausea or vomiting. Patient underwent dobutamine stress echo in August 2019 which was negative for reversible ischemia. DIAGNOSTICS: Patient refused to have EKG completed Chest xray negative for acute process Laboratory data: WBC 10.2. Hemoglobin 14.4. Bili count 280. Sodium 139. Potassium 4.2. BUN 17. Creatinine 0.57. Magnesium 2.4. Troponin negative 3 Current home cardiac medications include Rosuvastatin 5mg daily REVIEW OF SYSTEMS: At the time of my exam: CONSTITUTIONAL: Denies fever or chills. HEENT: Denies blurred vision, vision changes, or eye pain. Denies hemoptysis CARDIOVASCULAR: Denies chest pain, orthopnea, PND or palpitations RESPIRATORY: No shortness of breath. GASTROINTESTINAL: Denies abdominal pain. Denies nausea or vomiting. HEMATOLOGIC: Denies bleeding disorders. GENITOURINARY: Denies any blood in urine. SKIN: Denies pruitis. Denies rash. PHYSICAL EXAM: VITAL SIGNS: Reviewed. GENERAL: Well-developed in no acute distress. HEENT: Head is normocephalic. Pupils are equal, round. Sclerae anicteric. Mucous membranes of the mouth are moist. Neck supple. No JVD or thyromegaly LUNGS: Respirations even and unlabored. Lungs essentially clear to auscultation bilaterally. HEART: Regular rate and rhythm. S1 and S2 heard. ABDOMEN: Soft. Nondistended. Nontender. EXTREMITIES: Normal range of motion. No clubbing or cyanosis. Peripheral pulses intact. No lower extremity edema NEUROLOGIC: Awake and alert. Oriented x 3. ASSESSMENT: Chest pain, atypical Hyperlipidemia PLAN: Patient had negative stress test performed in the last 3 months. She is currently refusing to have EKG or further testing completed. She is awaiting psychiatric consultation She may be discharged home today from a cardiac perspective. She is to follow up outpatient with Dr. Whitlock Nurse practitioner note has been reviewed by physician. Signing provider agrees with the documented findings, assessment, and plan of care. Past Medical History Past Medical History: Coronary Artery Disease (CAD), Deep Vein Thrombosis (DVT) Additional Past Medical History / Comment(s): blood clot in stomach, chronic neck pain, chronic joint pain, glaucoma, shoulder fx in three places, tore ligaments in bilateral knees, broke bilateral ankles and tore ligaments in both knees, vertigo, possible early onset dementia; bulging disc. History of Any Multi-Drug Resistant Organisms: None Reported Past Surgical History: Section, Cholecystectomy Additional Past Surgical History / Comment(s): c-sectionx4 Past Anesthesia/Blood Transfusion Reactions: No Reported Reaction Additional Past Anesthesia/Blood Transfusion Reaction / Comment(s): pt is poor historian; states she recieved 4 units of blood 45 years ago and was exposed to hepatitis A, B and C Past Psychological History: Anxiety, Depression Smoking Status: Former smoker Past Alcohol Use History: None Reported Past Drug Use History: None Reported, Marijuana Additional Drug Use History / Comment(s): Pt denies use of alcohol, marijuana, and other illicit substances even thougth the record indicates otherwise. When asked about the discrepancy, pt states "they don't know what they are talking about." Pt states marijuana use. - Past Family History Father Additional Family Medical History / Comment(s): no history Brother(s) Family Medical History: Myocardial Infarction ([place]) Mother Additional Family Medical History / Comment(s): dementia Medications and Allergies Home Medications Medication Instructions Recorded Confirmed Type Ergocalciferol (Vitamin D2) 50,000 unit PO Q14D 11/19/19 11/30/19 History [Drisdol] Rosuvastatin Calcium 5 mg PO HS 11/19/19 11/30/19 History Albuterol Sulfate [Ventolin HFA] 2 puff INHALATION RT-Q6H PRN 30 11/30/19 11/30/19 Rx Days inhaler Amitriptyline HCl [Elavil] 25 mg PO BID 30 Days tab 11/30/19 11/30/19 Rx Docusate [Colace] 100 mg PO BID PRN 30 Days cap 11/30/19 11/30/19 Rx Ferrous Sulfate [Iron (65 MG 325 mg PO BID PRN 30 Days tab 11/30/19 11/30/19 Rx Elemental)] Folic Acid 1 mg PO DAILY 11/30/19 11/30/19 History Melatonin 3 mg PO HS 30 Days tablet 11/30/19 11/30/19 Rx Multivitamins, Thera [Multivitamin 1 tab PO DAILY 11/30/19 11/30/19 History (formulary)] Nicotine 7Mg/24Hr Patch [Habitrol] 1 patch TRANSDERM DAILY 30 Days 11/30/19 11/30/19 Rx patch Pantoprazole [Protonix] 40 mg PO AC-BRKFST 30 Days 11/30/19 11/30/19 Rx tablet. hydrOXYzine pamoate [Vistaril] 25 mg PO Q8HR PRN 30 Days cap 11/30/19 11/30/19 Rx Famotidine [Pepcid] 20 mg PO BID #30 tab 12/01/19 Rx Allergies Allergy/AdvReac Type Severity Reaction Status Date / Time Penicillins Allergy Unknown Verified 11/30/19 21:12 latex AdvReac Rash/Hives Verified 11/30/19 21:12 Physical Exam Vitals: Vital Signs Temp Pulse Pulse Resp BP BP Pulse Ox 12/01/19 04:51 98.4 F 64 18 115/62 98 12/01/19 02:41 97.9 F 73 16 113/53 98 12/01/19 02:09 98.7 F 79 19 110/58 99 12/01/19 01:00 98.9 F 76 18 105/64 99 11/30/19 21:10 99.1 F 82 20 138/80 99 Intake and Output 11/30/19 12/01/19 12/01/19 22:59 06:59 14:59 Intake Total 840 Balance 840 Intake: Oral 840 Other: Weight 51.029 kg 48.6 kg Results 11/30/19 21:36 11/30/19 21:36 Cardiac Enzymes 11/30/19 11/30/19 12/01/19 Range/Units 21:36 21:36 00:56 AST 44 H (14-36) U/L Troponin I <0.012 <0.012 (0.000-0.034) ng/mL 12/01/19 Range/Units 04:41 AST (14-36) U/L Troponin I <0.012 (0.000-0.034) ng/mL Coagulation 11/30/19 Range/Units 21:36 PT 9.4 (9.0-12.0) sec APTT 22.4 (22.0-30.0) sec Lipids 12/01/19 Range/Units 04:41 Triglycerides 121 (<150) mg/dL Cholesterol 202 H (<200) mg/dL HDL Cholesterol 67 H (40-60) mg/dL CBC 11/30/19 Range/Units 21:36 WBC 10.2 (3.8-10.6) k/uL RBC 4.41 (3.80-5.40) m/uL Hgb 14.4 (11.4-16.0) gm/dL Hct 43.2 (34.0-46.0) % Plt Count 280 (150-450) k/uL Comprehensive Metabolic Panel 11/30/19 Range/Units 21:36 Sodium 139 (137-145) mmol/L Potassium 4.2 (3.5-5.1) mmol/L Chloride 106 (98-107) mmol/L Carbon Dioxide 27 (22-30) mmol/L BUN 17 (7-17) mg/dL Creatinine 0.57 (0.52-1.04) mg/dL Glucose 111 H (74-99) mg/dL Calcium 9.9 (8.4-10.2) mg/dL AST 44 H (14-36) U/L ALT 43 H (4-34) U/L Alkaline Phosphatase 59 (38-126) U/L Total Protein 7.6 (6.3-8.2) g/dL Albumin 4.7 (3.5-5.0) g/dL Current Medications Generic Name Dose Route Start Last Admin Trade Name Freq PRN Reason Stop Dose Admin Albuterol Sulfate 2.5 mg 12/01/19 07:58 Albuterol Nebulized 2.5 Mg/3 Ml INHALATION RT-Q6H PRN Shortness Of Breath Amitriptyline HCl 25 mg 12/01/19 09:00 12/01/19 08:32 Amitriptyline Hcl 25 Mg Tab PO Not Given BID [facility] Aspirin 325 mg 12/01/19 09:00 12/01/19 08:32 Aspirin 325 Mg Tab PO Not Given DAILY ROSA MARIA Docusate Sodium 100 mg 12/01/19 07:58 Docusate 100 Mg Cap PO BID PRN Constipation Enoxaparin Sodium 40 mg 12/01/19 09:00 12/01/19 08:33 Enoxaparin 40 Mg/0.4 Ml Syringe SQ Not Given DAILY [facility] Ergocalciferol 50,000 unit 12/04/19 09:00 Ergocalciferol 50,000 Unit Cap PO Q14D [facility] Famotidine 20 mg 12/01/19 09:00 12/01/19 08:33 Famotidine 20 Mg Tab PO Not Given BID [facility] Ferrous Sulfate 325 mg 12/01/19 07:58 Ferrous Sulfate 325 Mg Tab PO BID PRN LOW IRON Folic Acid 1 mg 12/01/19 09:00 12/01/19 08:33 Folic Acid 1 Mg Tab PO Not Given DAILY [facility] Melatonin 3 mg 12/01/19 21:00 Melatonin 3 Mg Tablet PO HS [facility] Nicotine 1 patch 12/01/19 09:00 12/01/19 08:33 Nicotine 7mg/24hr Patch TRANSDERM Not Given DAILY [facility] Pantoprazole Sodium 40 mg 12/02/19 07:30 Pantoprazole 40 Mg Tablet PO AC-BRKFST [facility] Intake and Output 11/30/19 12/01/19 12/01/19 22:59 06:59 14:59 Intake Total 840 Balance 840 Intake: Oral 840 Other: Weight 51.029 kg 48.6 kg 11/30/19 21:36 11/30/19 21:36
--- NOTE | 2019-12-01 17:36 | P.DS ---
Providers Date of admission: 11/30/19 22:56 Attending physician: Yumi Prabhakar Consults: 12/01/19 08:32 Consult Physician Routine Consulting Provider: Valdez Prasad Consult Reason/Comments: recent discharge pychosis Do you want consulting provider notified?: Yes Primary care physician: Ezequiel [facility] Course: Please refer to HPI for further details Patient Condition at Discharge: Fair Plan - Discharge Summary Discharge Rx Participant: No New Discharge Prescriptions: New Famotidine [Pepcid] 20 mg PO BID #30 tab Continue Ergocalciferol (Vitamin D2) [Drisdol] 50,000 unit PO Q14D Rosuvastatin Calcium 5 mg PO HS Docusate [Colace] 100 mg PO BID PRN 30 Days cap PRN Reason: Constipation Amitriptyline HCl [Elavil] 25 mg PO BID 30 Days tab Nicotine 7Mg/24Hr Patch [Habitrol] 1 patch TRANSDERM DAILY 30 Days patch Melatonin 3 mg PO HS 30 Days tablet Pantoprazole [Protonix] 40 mg PO AC-BRKFST 30 Days tablet. hydrOXYzine pamoate [Vistaril] 25 mg PO Q8HR PRN 30 Days cap PRN Reason: Anxiety Ferrous Sulfate [Iron (65 MG Elemental)] 325 mg PO BID PRN 30 Days tab PRN Reason: LOW IRON Albuterol Sulfate [Ventolin HFA] 2 puff INHALATION RT-Q6H PRN 30 Days inhaler PRN Reason: Shortness Of Breath Multivitamins, Thera [Multivitamin (formulary)] 1 tab PO DAILY Folic Acid 1 mg PO DAILY Discharge Medication List Ergocalciferol (Vitamin D2) [Drisdol] 50,000 unit PO Q14D 11/19/19 [History] Rosuvastatin Calcium 5 mg PO HS 11/19/19 [History] Albuterol Sulfate [Ventolin HFA] 2 puff INHALATION RT-Q6H PRN 30 Days inhaler 11/30/19 [Rx] Amitriptyline HCl [Elavil] 25 mg PO BID 30 Days tab 11/30/19 [Rx] Docusate [Colace] 100 mg PO BID PRN 30 Days cap 11/30/19 [Rx] Ferrous Sulfate [Iron (65 MG Elemental)] 325 mg PO BID PRN 30 Days tab 11/30/19 [Rx] Folic Acid 1 mg PO DAILY 11/30/19 [History] Melatonin 3 mg PO HS 30 Days tablet 11/30/19 [Rx] Multivitamins, Thera [Multivitamin (formulary)] 1 tab PO DAILY 11/30/19 [History] Nicotine 7Mg/24Hr Patch [Habitrol] 1 patch TRANSDERM DAILY 30 Days patch 11/30/19 [Rx] Pantoprazole [Protonix] 40 mg PO AC-BRKFST 30 Days tablet. 11/30/19 [Rx] hydrOXYzine pamoate [Vistaril] 25 mg PO Q8HR PRN 30 Days cap 11/30/19 [Rx] Famotidine [Pepcid] 20 mg PO BID #30 tab 12/01/19 [Rx] Follow up Appointment(s)/Referral(s): Ezequiel Oshea III, MD [Primary Care Provider] - 3 Days Patient Instructions/Handouts: Chest Pain (ED) Discharge Disposition: HOME SELF-CARE
[2019-12-01] MEDS ORDERED: MELATONIN 3 MG TABLET PO SCH (21:00)
[2019-12-01] MEDS ORDERED: ATORVASTATIN 10 MG TAB PO SCH (21:00)
[2019-12-02] MEDS ORDERED: PANTOPRAZOLE 40 MG TABLET PO SCH (07:30)
[2019-12-04] MEDS ORDERED: ERGOCALCIFEROL 50,000 UNIT CAP PO SCH (09:00)
== END 2019-12-01 17:44 | disposition home or self-care (01) ==
LOC: EC 20:52 → 3SCARD 22:56
PROVIDERS: ADMIT Hospitalist; ATTEND Hospitalist
DX: R07.9 Chest pain, unspecified (principal); E78.5 Hyperlipidemia, unspecified; F12.90 Cannabis use, unspecified, uncomplicated; F32.9 Major depressive disorder, single episode, unspecified; F41.9 Anxiety disorder, unspecified; I25.10 Atherosclerotic heart disease of native coronary artery without angina pectoris; Z79.899 Other long term (current) drug therapy; Z82.49 Family history of ischemic heart disease and other diseases of the circulatory system; Z86.718 Personal history of other venous thrombosis and embolism; Z87.891 Personal history of nicotine dependence; Z91.83 Wandering in diseases classified elsewhere
CPT/HCPCS: 99285; 36415; 93005; 83880; 80061; 80053; 83735; 84484 ×2; 85025; 85610; 85730; 71046; G0378 ×2